=== PATIENT | female | born 1950 | race Caucasian/White ===

== ENCOUNTER 2016-09-08 07:05 | Inpatient (IN) ==
[2016-09-08] MEDS ORDERED: ONDANSETRON 4 MG/2 ML VIAL IV PRN ×2 (07:13→15:33)
[2016-09-08] MEDS ORDERED: ALUM/MAG/SIMETH/LIDO VISC 1:1 30 ML BOTTLE PO STA (07:13)
[2016-09-08] MEDS ORDERED: MORPHINE 2 MG/1 ML SYRINGE IV PRN (07:13)
[2016-09-08] MEDS ORDERED: ENOXAPARIN 100 MG/ML SYRINGE SUBCUT STA (07:13)
[2016-09-08] MEDS ORDERED: ASPIRIN 325 MG TABLET PO STA (07:13)
[2016-09-08] MEDS ORDERED: NITROGLYCERIN SL 0.4 MG TABLET SL PRN ×2 (07:13→11:30)
--- NOTE | 2016-09-08 07:27 | EKG Report ---
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
--- NOTE | 2016-09-08 07:34 | Emergency Department Note ---
Nithya Kang Hilary, am scribing for, and in the presence of, Andrea Saha MD 07: 31. Maria A Kang James D, MD, personally performed the services described in this documentation, ascribed by Nyasia Barriga in my presence, and it is both accurate and complete 733 . Arrival - Arrival Chief Complaint: Chest Pain Stated Complaint: chest pain ED Nursing Triage Note: Pt arrived via ems with c/o of cp upon awakening. Denies nausea at this time. Reports shortness of breath with chest pain. Pt reports taking 2 nitro sl. States pain is now 3 out of 10. Pt wearing holter monitor. Refused to take meds from ems. Mode of Arrival: Stretcher Limitations: No Limitations Source: Patient, RN Notes Reviewed Time Seen by Provider: 09/08/16 07:13 - History of Present Illness HPI Narrative: Pt is a 66 y/o white female brought to the ED via EMS for c/o chest pain which onset 0545 which is no resolved. She confirms SOB but denies cough, fever, diaphoresis. Pt has a PMHx of CHF, Cardiac Dysrhythmia, HTN, and has an internal defibrillator. No other complaints or problems stated in the ED. Onset (ago): hour(s) Consistency: constant, now resolved Severity: mild Severity scale (1-10): 3 Quality: sharp Allergies/Adverse Reactions: Allergies Allergy/AdvReac Type Severity Reaction Status Date / Time meperidine [From Demerol] Allergy Hallucinati Verified 09/08/16 07:26 ng morphine Allergy Hypotension Verified 09/08/16 07:26 Review of System - Review of System 12 point system: reviewed and no additional remarkable complaints except as stated - Review of System Constitutional: Absent: diaphoresis, fever Respiratory: Present: respiratory distress (SOB). Absent: cough Cardiovascular: Present: chest pain Medical,Surgical,& Family Hx - Medical History Cardio: History of: Cardiac Dysrhythmia, CHF, Hypertension - Surgical History Cardiac Surgeries: Sugical HX of: Internal Defibrillator - Social History Smoking Status: Never smoker Frequency of Alcohol Use: None Type of Drug Use: None Exam Physical Examination: GENERAL: This is a well-nourished, well-developed in no apparent distress. VITAL SIGNS: Temperature: 98.7 Pulse: 71 Respiratory: 21 Blood Pressure: 145/ 89 O2Sat: 100 HEENT: Head is normocephalic and atraumatic. Pupils are equally round and reactive to light. Extraocular movement are intact. Oropharynx is benign with moist mucous membranes. NECK: Neck is soft and supple without tenderness. There are no masses. There is no lymphadenopathy. LUNGS: Lungs are clear to auscultation bilaterally. Chest rises symmetrically. There is no chest wall tenderness. CV: Heart is regular rate and rhythm without murmurs, rubs, or gallops. ABDOMEN: Abdomen is soft, non-tender to palpation. There are no abnormal masses palpated. There is no organomegaly. Bowel sounds are present and active. SKIN: Skin is warm and dry. No rash. EXTREMITIES: Patient has full range of motion without tenderness. There is no pedal edema. NEUROLOGIC: Awake, alert, and oriented x4. Cranial nerves II through XII are grossly intact. There are no motorsensory deficits. PSYCHIATRIC: Normal affect. Normal mood. Vital Signs: Vital Signs Temperature 98.7 F 09/08/16 07:06 Pulse Rate 112 H 09/08/16 08:30 Respiratory Rate 29 H 09/08/16 08:30 Blood Pressure 126/77 09/08/16 08:30 O2 Sat by Pulse Oximetry 98 09/08/16 08:30 Course - Consultations Consultation #1: Discussed with cardiology. Patient will be admitted to their service. The patient will be seen in the emergency department. Results - Labs CBC & BMP: 09/08/16 07:44 09/08/16 07:44 Lab Results: I have reviewed the patients labs Labs: Laboratory Tests 09/08/16 09/08/16 07:44 07:55 WBC 7.9 RBC 3.91 Hgb 12.0 Hct 35.4 L Plt Count 239 POC Creatinine 0.86 POC Estimated GFR (eGFR) > 60 Laboratory Tests 09/08/16 09/08/16 09/08/16 07:44 07:44 07:44 INR 1.0 PT Patient/Control Mix 10.3 Circ Anticoag PTT 21.5 Sodium 138 Potassium 5.0 Chloride 103 Carbon Dioxide 29 BUN 21 H Creatinine 1.20 H Glucose 143 H Troponin I < 0.015 Total Protein 7.2 Laboratory Tests 09/08/16 07:44 Urine pH 6.0 Ur Specific [place] 1.013 Urine Urobilinogen < 2.0 H Urine Leukocytes Moderate H Urine RBC 2 Urine WBC 10 - EKG EKG results: interpreted by ERMD - Impressions EKG: Normal sinus rhythm with rate of 72, nonspecific ST-T wave changes, left axis deviation. - Diagnostic Findings Procedure: Chest x-ray: image reviewed by me, report reviewed by me (1. stable position cardiac pacing device 2. Previous cholecystectomy 3. Resolution of atelectatic change in the right midlung zone with no acute cardiomegaly pathology noted. AICD in position with leads in place.), CT - chest: image reviewed by me, report reviewed by me (No pulmonary thromboembolus on chest CT PA gram.) Disposition Clinical Impression: Chest pain, Hyperlipidemia, Cardiomyopathy Case discussed with: patient, patient's family Disposition: Still a Patient Condition: Stable Time of Disposition: 08:38
[2016-09-08 07:57] LABS: Basophils % 0.5 % (0.0-0.8); Eosinophils % 4.3 % (0.00-10.9); Hematocrit 35.4 VOL% (35.7-47.0); Lymphocytes % 22.9 % (21.3-54.2); Mean Corpuscular HGB Conc 33.9 GM/DL (32-36); Mean Corpuscular Hemoglobin 31 PG (27-34); Mean Corpuscular Volume 90.5 FL (87-102); Mean Platelet Volume 10.5 FL (9.6-12.0); Monocytes % 8.4 % (1.7-12.7); Platelet Count 239 T/CUMM (130-400); Red Blood Count 3.91 MC/CUMM (3.8-5.5); Red Cell Distribution Width 14.9 % (9.3-17.3); White Blood Count 7.9 T/CUMM (4-12)
[2016-09-08 07:58] LABS: Eosinophils # 0.3 10*3/uL (0.0-0.87); Immature Granulocytes % 0.9 %; Immature Granulocytes Absolute 0.07 #; Lymphocytes # 1.8 10*3/uL (1.4-4.0); Monocytes # 0.7 10*3/uL (0.11-0.8); Neutrophils # 4.9 10*3/uL (1.4-7.4)
[2016-09-08 08:07] LABS: PT Patient Result 10.3 SECS; Partial Thromboplastin Time 21.5 SECS (0-40)
[2016-09-08] MEDS ORDERED: ONDANSETRON 4 MG/2 ML VIAL ONE (08:20)
[2016-09-08] MEDS ORDERED: NITROGLYCERIN SL 0.4 MG TABLET SL ONE (08:20)
[2016-09-08] MEDS ORDERED: ENOXAPARIN 80 MG/0.8 ML SYRINGE SUBCUT ONE (08:20)
[2016-09-08] MEDS ORDERED: ASPIRIN 325 MG TABLET ONE (08:21)
[2016-09-08] MEDS ORDERED: ALUM/MAG/SIMETH/LIDO VISC 1:1 30 ML BOTTLE PO ONE (08:21)
--- NOTE | 2016-09-08 08:24 | XRay Report ---
Exam: XR chest 2V Date: 09/08/2016 7:14 AM Indication: Chest pain Comparison: None Technical: PA lateral Findings: Patient device is in place from a left-sided approach with defibrillator leads. External cardiac leads are also present. The heart is normal in size. ASVD is present. No obvious consolidating infiltrate or effusion. Prior cholecystectomy clips are present. Degenerative change present thoracic spine. Impression: 1. Stable position cardiac pacing device 2. Previous cholecystectomy 3. Resolution of atelectatic change in the right midlung zone with no acute cardiomegaly pathology noted PROCEDURE INTERPRETED AT [facility] DEPARTMENT OF RADIOLOGY Final Report Signed by: Dr. Piotr Dozier
[2016-09-08 08:27] LABS: Alanine Aminotransferase 26 U/L (13-56); Albumin 3.9 G/DL (3.4-5.0); Alkaline Phosphatase 69 U/L (45-117); Aspartate Amino Transferase 21 U/L (0-37); Bilirubin,Total < 0.39 MG/DL (0.2-1.0); Blood Urea Nitrogen 21 MG/DL (7-18); Calcium 9.1 MG/DL (8.5-10.1); Glucose 143 MG/DL (74-106); Osmolality,Calculated 279.7 MOS/KG (273-304); Sodium 138 MMOL/L (136-145); Total Protein 7.2 G/DL (6.4-8.3)
--- NOTE | 2016-09-08 08:31 | CT Report ---
Exam: CT chest PE study Date: 09/08/2016 7:29 AM Indication: Chest pain Comparison: Routine chest Technical: Images were obtained from the thoracic inlet through the lung bases with 80 cc of Omnipaque 350 with axial and coronal imaging available for review. Dose reduction was performed with decreasing kv and mA and automated exposure. 3-D MIP images were obtained Total DLP 175.7 Findings: Cardiac pacing device from a left-sided approach with atrial ventricular leads present calcified granuloma over the left chest is present. Calcified granuloma in the right lung base also present.. The pulmonary outflow tract, left and right proximal pulmonary arteries, first-order, second-order and third order branches reveal no evidence of pulmonary thromboemboli. The lungs are clear without infiltrates or effusions. The mediastinum and bony structures are intact. ASVD is present. Mild cardiomegaly. Liver and spleen stomach pancreas adrenal glands are intact. Prior cholecystectomy clips are present. Impression: 1. No evidence of pulmonary thromboemboli. 2. Stable position of patient device from a left-sided approach with atrial ventricular leads 3. Small granuloma calcification in the right and left chest measuring up to 10 mm. PROCEDURE INTERPRETED AT [facility] DEPARTMENT OF RADIOLOGY Final Report Signed by: Dr. Piotr Dozier
[2016-09-08 08:42] LABS: Apearance,Urine Slightly Hazy (Clear); Bilirubin,Urine Negative (Negative); Blood, Urine Negative (Negative); Glucose,Urine (UA) Negative (Negative); Ketones,Urine Negative (Negative); Mucus,Urine Occasional /LPF (Occasional); Nitrite,Urine Negative (Negative); Protein,Urine Negative; RBC,Urine 2 /HPF (0-4); Squamous Epithelial Cell,Urine Occasional /HPF (0-10); Urine Color Yellow (Yellow); Urine Specific Gravity 1.013 (1.001-1.035); Urine Urobilinogen < 2.0 EU/DL (0.2-1.0); WBC,Urine 10 /HPF (0-6)
[2016-09-08] MEDS ORDERED: SODIUM CHLORIDE 0.9% 1,000 ML IV SCH (09:58)
[2016-09-08] MEDS ORDERED: MAGNESIUM SULF RIDER 2 GM in PREMIX 1 EACH IV PRN (09:58)
[2016-09-08] MEDS ORDERED: MAGNESIUM SULF RIDER 4 GM in PREMIX 1 EACH IV PRN (09:58)
--- NOTE | 2016-09-08 10:22 | EKG Report ---
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
[2016-09-08 10:34] LABS: Phencyclidine Screen,Urine Negative (Negative)
[2016-09-08 10:35] LABS: Barbiturates Screen,Urine Negative (Negative); Benzodiazepines Screen,Urine Negative (Negative); Cannabinoid Screen,Urine Negative (Negative); Opiate Screen,Urine Negative (Negative)
[2016-09-08 11:15] LABS: Magnesium 2.2 MG/DL (1.8-2.4); Thyroid Stimulating Hormone 4.58 uIU/ml (0.358-3.74)
--- NOTE | 2016-09-08 11:24 | Cardiology History & Physical ---
<Megan Ramírez E - Last Filed: 09/08/16 11:03> Assessment and Plan - Time spent with patient Time spent with patient: Greater than 30 minutes (1) PAF (paroxysmal atrial fibrillation) Status: Chronic Assessment and plan: SEE PLAN OF CARE LISTED BELOW Current Visit: Yes (2) NICM (nonischemic cardiomyopathy) Status: Acute Assessment and plan: SEE PLAN OF CARE LISTED BELOW Current Visit: Yes (3) Dyslipidemia Status: Chronic Assessment and plan: SEE PLAN OF CARE LISTED BELOW Current Visit: Yes (4) Sleep apnea Status: Chronic Assessment and plan: SEE PLAN OF CARE LISTED BELOW Current Visit: Yes (5) Chronic UTI Status: Chronic Assessment and plan: SEE PLAN OF CARE LISTED BELOW Current Visit: Yes (6) High risk medication use Status: Chronic Assessment and plan: SEE PLAN OF CARE LISTED BELOW Current Visit: Yes (7) Chest pain Status: Resolved Assessment and plan: SEE PLAN OF CARE LISTED BELOW Current Visit: Yes (8) Hyperlipidemia Status: Chronic Assessment and plan: SEE PLAN OF CARE LISTED BELOW Current Visit: Yes History of Present Illness Chief complaint: Chest pain History of present illness: [employer]OR: DR. MCCLURE Ms. Owens, [id number], is routinely followed by Dr. Mcclure. She was last seen in cardiology clinic June 19, 2016. Risk factors include: Hypertension, dyslipidemia, TIA. History of nonischemic cardiomyopathy requiring ICD approximately 10 years ago (EF now 55% per echo September 08, 2015). History of untreated sleep apnea. She was recently diagnosed with atrial fibrillation when discovered to have a TIA. [place] at that time, started on Eliquis. Stress test September 11, 2015 revealed no reversible ischemia, low risk. This morning, around 0545, patient was lying in bed when she began to experience left upper chest pain radiating through to her left scapula, described as sharp and stabbing. It was worse when taking a deep breath, lasted approximately 10 minutes and resolved on its own. There was no shortness of breath, nausea, vomiting or diaphoresis. She can identify no alleviating factors. Rates the discomfort as a 7 on a scale of 1-10, currently chest pain-free. She has never had this type of discomfort before and feels as if she should be evaluated in the emergency department. Cardiac biomarkers negative, EKG reveals atrial fibrillation, chest x-ray reveals no significant abnormality. CT chest reveals no significant abnormality, no PTE. Normally, she is very active, walking 1-2 miles daily and can perform these activities without chest pain, heaviness, tightness or shortness of breath. Patient has been expressing palpitations for many months. Spring 2016, she wore a holter monitor without significant arrhythmia noted. She is currently wearing an event monitor for these palpitations. Initial EKG on arrival today reveals atrial fibrillation. She reports it has been difficult to diagnose as she feels as if she is in an irregular rhythm frequently but the irregularity is not easily captured. In the emergency room ([id number]) recently, she was diagnosed with a TIA for symptoms including weakness, dysarthria. She was started on Eliquis at that time for atrial fibrillation. I do not have these records. She has had no additional TIAs. Reports she had echo, CT head and carotid ultrasound during the ER visit and received favorable results from all of these studies. Patient also has untreated sleep apnea. Proximally 1-1/2 years ago, she underwent sleep study and was diagnosed with sleep apnea. This was during the time Dr. Enamorado was transitioning to [facility] and she did not get/return for follow-up appointment. During this hospital stay, I will ask Dr. Bishop to see, evaluate and treat accordingly. Reviewing the patient's current medications it appears that her Coreg was decreased during the ER visit from 12.5 mg twice daily to 6.25 mg twice daily. Blood pressure and heart rate may allow for increase and I will increase her beta-pratibha at this time. Adding magnesium level, TSH/T4 to her labs today. Patient had recent echocardiogram [id number], therefore no need to repeat but we will obtain these records. I will further discuss with Dr. Abernathy and await additional recommendations. It has been 1 year since patient has had stress test. She may benefit from outpatient stress testing. Continue Eliquis for stroke prevention as she as LISSETTE VASC SCORE of 6. ASSESSMENT/PLAN: 1. CHEST PAIN - atypical chest pain. Suspect it may be musculoskeletal. It is not reproducible to palpation and she has been ruled out for pulmonary contributions by chest x-ray and CT chest. It has resolved. Cardiac biomarkers are negative. May benefit from outpatient stress test. 2. PAROXYSMAL ATRIAL FIBRILLATION - increase Coreg for better rate control. This may require that I decrease her dose of Valsartan and I will do such accordingly. 3. HYPERTENSION - usually well controlled. Will adjust medications accordingly during hospital stay. 4. DYSLIPIDEMIA - recent lipid profile therefore no need to repeat. Continue Pravastatin. 5. RECENT TIA - suspect related to atrial fibrillation, now taking Eliquis for stroke prevention 6. UNTREATED SLEEP APNEA - consult Dr. Bishop 7. CHRONIC UTI - multiple allergies but can take Macrodantin and I will start today. Home Medications Medication Instructions Recorded Confirmed Type Allopurinol 100 mg PO BID 09/08/16 09/08/16 History Amitriptyline [Elavil] 25 mg PO BEDTIME 09/08/16 09/08/16 History Apixaban [Eliquis] 5 mg PO BID 09/08/16 09/08/16 History Aspirin EC Tab 81 mg PO DAILY 09/08/16 09/08/16 History Calcium Carbonate/Vitamin D3 1 each PO DAILY 09/08/16 09/08/16 History [Calcium 600 + Vit D Tablet] Carvedilol [Coreg] 6.25 mg PO BID 09/08/16 09/08/16 History Ergocalciferol (Vitamin D2) 50,000 unit PO Q7DAY 09/08/16 09/08/16 History [Vitamin D2] Folic Acid Tab 1 mg PO DAILY 09/08/16 09/08/16 History Furosemide Tab [Lasix Tab] 40 mg PO BID 09/08/16 09/08/16 History Loperamide HCl [Loperamide] 2 mg PO Q4H PRN 09/08/16 09/08/16 History Loratadine Tab [Claritin Tab] 10 mg PO DAILY 09/08/16 09/08/16 History Magnesium Oxide 250 mg PO DAILY 09/08/16 09/08/16 History Nitroglycerin Sl Tab [Nitrostat] 0.4 mg SL Q5M PRN 09/08/16 09/08/16 History Blackwell-3 Fatty Acids/Fish Oil [Fish 3 each PO DAILY 09/08/16 09/08/16 History Oil 1,000 mg Softgel] Omeprazole [Prilosec] 20 mg PO DAILY 09/08/16 09/08/16 History Potassium Chloride [Klor-Con 8] 8 meq PO DAILY 09/08/16 09/08/16 History Pravastatin Sodium 20 mg PO BEDTIME 09/08/16 09/08/16 History Pregabalin [Lyrica] 75 mg PO BID 09/08/16 09/08/16 History Valsartan [Diovan] 320 mg PO DAILY 09/08/16 09/08/16 History Allergies Allergy/AdvReac Type Severity Reaction Status Date / Time meperidine [From Demerol] Allergy Hallucinati Verified 09/08/16 07:26 ng morphine Allergy Hypotension Verified 09/08/16 07:26 Review of systems: REVIEW OF SYSTEMS: See HPI - Constitutional Constitutional: Absent: syncope, anorexia, night sweats - EENT Eyes: Absent: blurry vision, loss of vision, diplopia Ears: Absent: decreased hearing, ear pain, ear discharge - Cardiovascular Cardiovascular: Denies chest pain with exertion, dyspnea on exertion, edema. Frequent palpitations. Experienced chest pain with deep breath this morning. Denies claudication. - Respiratory Respiratory: Denies GUTIERREZ, cough. Absent: wheezing, hemoptysis, change in phlegm color - Gastrointestinal Gastrointestinal: Present: Chronic diarrhea since gallbladder has been removed. Absent: abdominal pain, hematemesis, hematochezia, melena, change in bowel habits, nausea - Genitourinary Genitourinary: Occasional dysuria though none present today. Absent: difficulty urinating, urinary hesitancy, flank pain - Musculoskeletal Musculoskeletal: Present: back pain Absent: joint swelling, muscle cramps, muscle weakness - Neurological Neurological: Present: normal gait without frequent falls. Absent: dizziness, hemiparesis - Psychiatric Psychiatric: Absent: anxiety, depression, difficulty concentrating - Endocrine Endocrine: Denies fatigue. Absent: cold intolerance, heat intolerance, polyuria , polyphagia, polydipsia - Hematologic/Lymphatic Hematologic/Lymphatic: Present: easy bruising. Absent: easy bleeding -Integumentary Integumentary: Absent: lesions, rashes, skin breakdown Medical,Surgical,& Family Hx - Medical History Cardio: History of: Cardiac Dysrhythmia, CHF, Hypertension, Pacemaker No history of: CAD, NE Neurology: History of: TIA (08/27/16) Rheumatology: History of;: Gout Genitourinary: History of: Bladder Problem, Kidney Stones, Recurring Urinary Tract Infections Gastrointestinal: History of: GERD Musculoskeletal: History of: Back/Neck Problems, Musculoskeletal Problems - Surgical History Cardiac Surgeries: Sugical HX of: Cardiac Catheterization, Internal Defibrillator Abdominal Surgeries: Surgical HX of: Appendectomy, Cholecystectomy Reproductive Surgeries: Surgical HX of;: Hysterectomy, Tubal Ligation Orthopedic Surgeries: Surgical HX of;: Orthopedic Surgery (right knee repair) - Family History Family History: Reports;: Family Cancer, Family Heart Disease, Family Hypertension, Family Stroke - Social History Smoking Status: Never smoker Have you smoked in the last 12 months: No Frequency of Alcohol Use: None Type of Drug Use: None Marital Status: Lives With:: Spouse Functional capacity: independent ambulation Cardiology Physical Exam - Constitutional Vitals: Vital Signs Temp Pulse Resp BP Pulse Ox 98.3 F 79 20 133/69 99 09/08/16 10:07 09/08/16 10:07 09/08/16 10:07 09/08/16 10:07 09/08/16 10:07 Intake and Output 09/07/16 09/08/16 09/08/16 23:59 07:59 15:59 Other: Weight 72.575 kg Patient Weight 09/08/16 23:59 Weight 72.575 kg Exam: General: [Appears well with no apparent distress.] [Pleasant and cooperative. ] [Appears comfortable.] HEENT: [PERRL, normocephalic, atraumatic. Mucous membranes moist. No jaundice noted. Conjunctiva moist and clear, sclerae anicteric] Neck: No JVD/HJR, no thyromegaly or lymphadenopathy noted. No carotid bruit appreciated Cardiac: [Regular rate and rhythm.] [No obvious murmur rub or gallop.] Lungs: [Clear to auscultation without accessory muscle use to assist the respiratory pattern.] Not requiring oxygen Abdomen: Soft, bowel sounds normoactive. Nontender and nondistended. No abdominal bruit or thrill noted. No masses noted. Musculoskeletal: No fluid collection. Decreased range of motion is noted. Extremities: No clubbing, cyanosis noted. [ No edema noted.] Upper extremity pulses 2+. Lower extremity pulses 2+. Capillary refill less than 3 seconds. Skin: No unusual lesions or rashes. No skin breakdown appreciated. Neuro: Awake, alert and oriented 3. Moves all extremities well without hemiparesis or paralysis. No essential tremor is appreciated. Result/EKG - Labs CBC & BMP: 09/08/16 07:44 09/08/16 07:44 Lab Results: I have reviewed the past 24 hour labs Labs: Laboratory Results - last 24 hr 09/08/16 09/08/16 09/08/16 07:44 07:44 07:44 WBC RBC Hgb Hct MCV MCH MCHC RDW Plt Count MPV Neut % (Auto) Lymph % (Auto) Hemphill % (Auto) Eos % (Auto) Baso % (Auto) Neut # (Auto) Lymph # (Auto) Hemphill # (Auto) Eos # (Auto) Baso # (Auto) Immature Gran % Nucleated RBC % Immature Gran # Nucleated RBCs # INR 1.0 PT Patient/Control Mix 10.3 Circ Anticoag PTT 21.5 Sodium 138 Potassium 5.0 Chloride 103 Carbon Dioxide 29 Anion Gap 11.0 BUN 21 H Creatinine 1.20 H POC Creatinine GFR Calculation 48 POC Estimated GFR (eGFR) BUN/Creatinine Ratio 17.00 Glucose 143 H Calculated Osmolality 279.7 Calcium 9.1 Total Bilirubin < 0.39 AST 21 ALT 26 Alkaline Phosphatase 69 Troponin I Total Protein 7.2 Albumin 3.9 Globulin 3.3 Albumin/Globulin Ratio 1.1 Urine Color Yellow Urine Appearance Slightly hazy Urine pH 6.0 Ur Specific Williams 1.013 Urine Protein Negative Urine Glucose (UA) Negative Urine Ketones Negative Urine Blood Negative Urine Nitrate Negative Urine Bilirubin Negative Urine Urobilinogen < 2.0 H Urine Leukocytes Moderate H Urine RBC 2 Urine WBC 10 Ur Squamous Epith Cells Occasional Urine Mucus Occasional Ur Culture Indicated? Results to follow Urine Opiates Screen Ur Barbiturates Screen Ur Phencyclidine Scrn U Amphetamine/Methamph U Benzodiazepines Scrn U Cocaine Metab Screen U Cannabinoids Screen 09/08/16 09/08/16 09/08/16 07:44 07:44 07:44 WBC 7.9 RBC 3.91 Hgb 12.0 Hct 35.4 L MCV 90.5 MCH 31 MCHC 33.9 RDW 14.9 Plt Count 239 MPV 10.5 Neut % (Auto) 63.0 Lymph % (Auto) 22.9 Hemphill % (Auto) 8.4 Eos % (Auto) 4.3 Baso % (Auto) 0.5 Neut # (Auto) 4.9 Lymph # (Auto) 1.8 Hemphill # (Auto) 0.7 Eos # (Auto) 0.3 Baso # (Auto) 0.0 Immature Gran % 0.9 Nucleated RBC % 0.0 Immature Gran # 0.07 Nucleated RBCs # 0.00 INR PT Patient/Control Mix Circ Anticoag PTT Sodium Potassium Chloride Carbon Dioxide Anion Gap BUN Creatinine POC Creatinine GFR Calculation POC Estimated GFR (eGFR) BUN/Creatinine Ratio Glucose Calculated Osmolality Calcium Total Bilirubin AST ALT Alkaline Phosphatase Troponin I < 0.015 Total Protein Albumin Globulin Albumin/Globulin Ratio Urine Color Urine Appearance Urine pH Ur Specific Williams Urine Protein Urine Glucose (UA) Urine Ketones Urine Blood Urine Nitrate Urine Bilirubin Urine Urobilinogen Urine Leukocytes Urine RBC Urine WBC Ur Squamous Epith Cells Urine Mucus Ur Culture Indicated? Urine Opiates Screen Negative Ur Barbiturates Screen Negative Ur Phencyclidine Scrn Negative U Amphetamine/Methamph Negative U Benzodiazepines Scrn Negative U Cocaine Metab Screen Negative U Cannabinoids Screen Negative 09/08/16 07:55 WBC RBC Hgb Hct MCV MCH MCHC RDW Plt Count MPV Neut % (Auto) Lymph % (Auto) Hemphill % (Auto) Eos % (Auto) Baso % (Auto) Neut # (Auto) Lymph # (Auto) Hemphill # (Auto) Eos # (Auto) Baso # (Auto) Immature Gran % Nucleated RBC % Immature Gran # Nucleated RBCs # INR PT Patient/Control Mix Circ Anticoag PTT Sodium Potassium Chloride Carbon Dioxide Anion Gap BUN Creatinine POC Creatinine 0.86 GFR Calculation POC Estimated GFR (eGFR) > 60 BUN/Creatinine Ratio Glucose Calculated Osmolality Calcium Total Bilirubin AST ALT Alkaline Phosphatase Troponin I Total Protein Albumin Globulin Albumin/Globulin Ratio Urine Color Urine Appearance Urine pH Ur Specific Williams Urine Protein Urine Glucose (UA) Urine Ketones Urine Blood Urine Nitrate Urine Bilirubin Urine Urobilinogen Urine Leukocytes Urine RBC Urine WBC Ur Squamous Epith Cells Urine Mucus Ur Culture Indicated? Urine Opiates Screen Ur Barbiturates Screen Ur Phencyclidine Scrn U Amphetamine/Methamph U Benzodiazepines Scrn U Cocaine Metab Screen U Cannabinoids Screen - Diagnostic Findings Procedure: Chest x-ray: report reviewed by me, CT - chest: report reviewed by me - EKG EKG results: interpreted by me EKG shows: sinus rhythm, atrial fibrillation <Timmy Abernathy - Last Filed: 09/08/16 15:02> History of Present Illness History of present illness: Cardiology addendum Patient examined and chart reviewed and discussed with nurse Megan RAMÍREZ. Nonischemic cardiomyopathy. Normal nuclear stress test September 11, 2015 no scar or ischemia. Recent echo showed improved ejection fraction now 55%. Patient does have untreated sleep apnea and will be seen by Dr. Bishop this admission. She has been having paroxysmal atrial fibrillation. Plan IV amiodarone loading Dr. Gray to see for QASIM Monitor Continue Eliquis Cardiology Physical Exam - Constitutional Vitals: Vital Signs Temp Pulse Resp BP Pulse Ox 97.4 F L 72 20 135/62 95 09/08/16 11:45 09/08/16 11:45 09/08/16 11:45 09/08/16 11:45 09/08/16 11:45 Intake and Output 09/07/16 09/08/16 09/08/16 23:59 07:59 15:59 Intake Total 360 / 360 Output Total Balance 359 / 359 Intake: Oral 360 / 360 Output: Urine Other: Voiding Method Toilet Weight 72.575 kg Patient Weight 09/08/16 23:59 Weight 72.575 kg Result/EKG - Labs CBC & BMP: 09/08/16 07:44 09/08/16 07:44 Labs: Laboratory Results - last 24 hr 09/08/16 09/08/16 09/08/16 07:44 07:44 07:44 WBC RBC Hgb Hct MCV MCH MCHC RDW Plt Count MPV Neut % (Auto) Lymph % (Auto) Hemphill % (Auto) Eos % (Auto) Baso % (Auto) Neut # (Auto) Lymph # (Auto) Hemphill # (Auto) Eos # (Auto) Baso # (Auto) Immature Gran % Nucleated RBC % Immature Gran # Nucleated RBCs # INR 1.0 PT Patient/Control Mix 10.3 Circ Anticoag PTT 21.5 Sodium 138 Potassium 5.0 Chloride 103 Carbon Dioxide 29 Anion Gap 11.0 BUN 21 H Creatinine 1.20 H POC Creatinine GFR Calculation 48 POC Estimated GFR (eGFR) BUN/Creatinine Ratio 17.00 Glucose 143 H Calculated Osmolality 279.7 Calcium 9.1 Magnesium Total Bilirubin < 0.39 AST 21 ALT 26 Alkaline Phosphatase 69 Troponin I Total Protein 7.2 Albumin 3.9 Globulin 3.3 Albumin/Globulin Ratio 1.1 Free T4 TSH 3rd Generation Urine Color Yellow Urine Appearance Slightly hazy Urine pH 6.0 Ur Specific Williams 1.013 Urine Protein Negative Urine Glucose (UA) Negative Urine Ketones Negative Urine Blood Negative Urine Nitrate Negative Urine Bilirubin Negative Urine Urobilinogen < 2.0 H Urine Leukocytes Moderate H Urine RBC 2 Urine WBC 10 Ur Squamous Epith Cells Occasional Urine Mucus Occasional Ur Culture Indicated? Results to follow Urine Opiates Screen Ur Barbiturates Screen Ur Phencyclidine Scrn U Amphetamine/Methamph U Benzodiazepines Scrn U Cocaine Metab Screen U Cannabinoids Screen 09/08/16 09/08/16 09/08/16 07:44 07:44 07:44 WBC 7.9 RBC 3.91 Hgb 12.0 Hct 35.4 L MCV 90.5 MCH 31 MCHC 33.9 RDW 14.9 Plt Count 239 MPV 10.5 Neut % (Auto) 63.0 Lymph % (Auto) 22.9 Hemphill % (Auto) 8.4 Eos % (Auto) 4.3 Baso % (Auto) 0.5 Neut # (Auto) 4.9 Lymph # (Auto) 1.8 Hemphill # (Auto) 0.7 Eos # (Auto) 0.3 Baso # (Auto) 0.0 Immature Gran % 0.9 Nucleated RBC % 0.0 Immature Gran # 0.07 Nucleated RBCs # 0.00 INR PT Patient/Control Mix Circ Anticoag PTT Sodium Potassium Chloride Carbon Dioxide Anion Gap BUN Creatinine POC Creatinine GFR Calculation POC Estimated GFR (eGFR) BUN/Creatinine Ratio Glucose Calculated Osmolality Calcium Magnesium Total Bilirubin AST ALT Alkaline Phosphatase Troponin I < 0.015 Total Protein Albumin Globulin Albumin/Globulin Ratio Free T4 TSH 3rd Generation Urine Color Urine Appearance Urine pH Ur Specific Williams Urine Protein Urine Glucose (UA) Urine Ketones Urine Blood Urine Nitrate Urine Bilirubin Urine Urobilinogen Urine Leukocytes Urine RBC Urine WBC Ur Squamous Epith Cells Urine Mucus Ur Culture Indicated? Urine Opiates Screen Negative Ur Barbiturates Screen Negative Ur Phencyclidine Scrn Negative U Amphetamine/Methamph Negative U Benzodiazepines Scrn Negative U Cocaine Metab Screen Negative U Cannabinoids Screen Negative 09/08/16 09/08/16 09/08/16 07:55 10:30 10:30 WBC RBC Hgb Hct MCV MCH MCHC RDW Plt Count MPV Neut % (Auto) Lymph % (Auto) Hemphill % (Auto) Eos % (Auto) Baso % (Auto) Neut # (Auto) Lymph # (Auto) Hemphill # (Auto) Eos # (Auto) Baso # (Auto) Immature Gran % Nucleated RBC % Immature Gran # Nucleated RBCs # INR PT Patient/Control Mix Circ Anticoag PTT Sodium Potassium Chloride Carbon Dioxide Anion Gap BUN Creatinine POC Creatinine 0.86 GFR Calculation POC Estimated GFR (eGFR) > 60 BUN/Creatinine Ratio Glucose Calculated Osmolality Calcium Magnesium 2.2 Total Bilirubin AST ALT Alkaline Phosphatase Troponin I < 0.015 Total Protein Albumin Globulin Albumin/Globulin Ratio Free T4 1.00 TSH 3rd Generation 4.580 H Urine Color Urine Appearance Urine pH Ur Specific Williams Urine Protein Urine Glucose (UA) Urine Ketones Urine Blood Urine Nitrate Urine Bilirubin Urine Urobilinogen Urine Leukocytes Urine RBC Urine WBC Ur Squamous Epith Cells Urine Mucus Ur Culture Indicated? Urine Opiates Screen Ur Barbiturates Screen Ur Phencyclidine Scrn U Amphetamine/Methamph U Benzodiazepines Scrn U Cocaine Metab Screen U Cannabinoids Screen 09/08/16 12:51 WBC RBC Hgb Hct MCV MCH MCHC RDW Plt Count MPV Neut % (Auto) Lymph % (Auto) Hemphill % (Auto) Eos % (Auto) Baso % (Auto) Neut # (Auto) Lymph # (Auto) Hemphill # (Auto) Eos # (Auto) Baso # (Auto) Immature Gran % Nucleated RBC % Immature Gran # Nucleated RBCs # INR PT Patient/Control Mix Circ Anticoag PTT Sodium Potassium Chloride Carbon Dioxide Anion Gap BUN Creatinine POC Creatinine GFR Calculation POC Estimated GFR (eGFR) BUN/Creatinine Ratio Glucose Calculated Osmolality Calcium Magnesium Total Bilirubin AST ALT Alkaline Phosphatase Troponin I < 0.015 Total Protein Albumin Globulin Albumin/Globulin Ratio Free T4 TSH 3rd Generation Urine Color Urine Appearance Urine pH Ur Specific Williams Urine Protein Urine Glucose (UA) Urine Ketones Urine Blood Urine Nitrate Urine Bilirubin Urine Urobilinogen Urine Leukocytes Urine RBC Urine WBC Ur Squamous Epith Cells Urine Mucus Ur Culture Indicated? Urine Opiates Screen Ur Barbiturates Screen Ur Phencyclidine Scrn U Amphetamine/Methamph U Benzodiazepines Scrn U Cocaine Metab Screen U Cannabinoids Screen
[2016-09-08] MEDS ORDERED: LOPERAMIDE 2 MG CAPSULE PO PRN (11:30)
--- NOTE | 2016-09-08 12:00 | Sleep Medicine Consult ---
Assessment and Plan (1) Sleep apnea Status: Chronic Assessment and plan: This patient does have obstructive sleep apnea by previous sleep study. Her sleep apnea was significant at that time. We will go ahead and prescribe CPAP for her and place her on auto titration tonight if hospitalized. We will follow -up on results and set her up for CPAP therapy after discharge with follow-up in the sleep clinic. Current Visit: Yes (2) PAF (paroxysmal atrial fibrillation) Status: Chronic Assessment and plan: Untreated sleep apnea can be an exacerbating factor to atrial fibrillation the prevalence for obstructive sleep apnea in patients with A. fib can be as high as 80%. Treating the underlying sleep apnea can reduce recurrence by almost 50% . Current Visit: Yes History of Present Illness Chief complaint: Obstructive sleep apnea History of present illness: Ms. Owens is a 66 year old female diagnosed with obstructive sleep apnea on with mild obstructive sleep apnea with a moderate REM component. She had an AHI of 6.7 and had O2 desaturation to lows of 83%. She had a REM related AHI of 23.1. She underwent CPAP titration and was prescribed 5 cm of CPAP but never got it, stating that there was a glitch with the prescription written. She was lost to follow-up. She has been admitted on this occasion with chest pain and was found to be in atrial fibrillation. Sleep medicine was consulted. The patient does continue to have significant issues with her sleep. Her sleep is unrefreshing. She has difficulty initiating and maintaining sleep. She often will retire about 10 PM and will get out of bed about 7 in the morning. She awakens several times at night. She does snore but is never been told that she stops breathing in her sleep other than from her sleep study. She not aware of any significant issues with restlessness of her legs or leg jerks. She does have some nocturia. She does drink caffeinated beverages during the day, up to 4 glasses of caffeinated tea with the last being about 6 PM. She denies schedule naps but does occasionally doze off during the day. Home Medications Medication Instructions Recorded Confirmed Type Allopurinol 100 mg PO BID 09/08/16 09/08/16 History Amitriptyline [Elavil] 25 mg PO BEDTIME 09/08/16 09/08/16 History Apixaban [Eliquis] 5 mg PO BID 09/08/16 09/08/16 History Aspirin EC Tab 81 mg PO DAILY 09/08/16 09/08/16 History Calcium Carbonate/Vitamin D3 1 each PO DAILY 09/08/16 09/08/16 History [Calcium 600 + Vit D Tablet] Carvedilol [Coreg] 6.25 mg PO BID 09/08/16 09/08/16 History Ergocalciferol (Vitamin D2) 50,000 unit PO Q7DAY 09/08/16 09/08/16 History [Vitamin D2] Folic Acid Tab 1 mg PO DAILY 09/08/16 09/08/16 History Furosemide Tab [Lasix Tab] 40 mg PO BID 09/08/16 09/08/16 History Loperamide HCl [Loperamide] 2 mg PO Q4H PRN 09/08/16 09/08/16 History Loratadine Tab [Claritin Tab] 10 mg PO DAILY 09/08/16 09/08/16 History Magnesium Oxide 250 mg PO DAILY 09/08/16 09/08/16 History Nitroglycerin Sl Tab [Nitrostat] 0.4 mg SL Q5M PRN 09/08/16 09/08/16 History Ponce-3 Fatty Acids/Fish Oil [Fish 3 each PO DAILY 09/08/16 09/08/16 History Oil 1,000 mg Softgel] Omeprazole [Prilosec] 20 mg PO DAILY 09/08/16 09/08/16 History Potassium Chloride [Klor-Con 8] 8 meq PO DAILY 09/08/16 09/08/16 History Pravastatin Sodium 20 mg PO BEDTIME 09/08/16 09/08/16 History Pregabalin [Lyrica] 75 mg PO BID 09/08/16 09/08/16 History Valsartan [Diovan] 320 mg PO DAILY 09/08/16 09/08/16 History Allergies Allergy/AdvReac Type Severity Reaction Status Date / Time meperidine [From Demerol] Allergy Hallucinati Verified 09/08/16 07:26 ng morphine Allergy Hypotension Verified 09/08/16 07:26 Review of systems: Otherwise unremarkable from sleep standpoint. Exam (Pulmonay) H&P - Constitutional Vitals: Period Temp Pulse Resp BP Sys/Jauregui Pulse Ox Last 24 Hr 97.4 F-98.7 F 69-112 15-30 117-155/62-98 95-100 Exam: She is alert and responsive in no acute distress. Pupils equal round reactive to light and accommodation. Extraocular movements intact. Oropharynx with a class III Mallampati exam. Neck is supple without adenopathy or thyromegaly. No supraclavicular adenopathy is noted. Chest with symmetrical breath sounds without focal wheeze, rhonchi, or rales. Cardiac exam reveals a regular rhythm without murmur or gallop. Abdomen soft nontender without palpable hepatosplenomegaly or mass. Extremities are without clubbing, cyanosis, or edema. Neurologically, she is grossly intact. She moves all extremities with good strength. Medical,Surgical,& Family Hx - Medical History Cardio: History of: Cardiac Dysrhythmia, CHF, Hypertension, Pacemaker No history of: CAD, [place] Neurology: History of: TIA (08/27/16) Rheumatology: History of;: Gout Genitourinary: History of: Bladder Problem, Kidney Stones, Recurring Urinary Tract Infections Gastrointestinal: History of: GERD Musculoskeletal: History of: Back/Neck Problems, Musculoskeletal Problems - Surgical History Cardiac Surgeries: Sugical HX of: Cardiac Catheterization, Internal Defibrillator Abdominal Surgeries: Surgical HX of: Appendectomy, Cholecystectomy Reproductive Surgeries: Surgical HX of;: Hysterectomy, Tubal Ligation Orthopedic Surgeries: Surgical HX of;: Orthopedic Surgery (right knee repair) - Family History Family History: Reports;: Family Cancer, Family Heart Disease, Family Hypertension, Family Stroke - Social History Smoking Status: Never smoker Frequency of Alcohol Use: None Type of Drug Use: None Marital Status: Lives With:: Spouse Results - Labs CBC & BMP: 09/08/16 07:44 09/08/16 07:44 Lab Results: I have reviewed the past 24 hour labs Labs: TSH suggests that she has mild hypothyroidism.
[2016-09-08] MEDS: NITROFURANTOIN MACRO/MONO 100 MG CAPSULE PO SCH ×2 (13:07→20:33)
--- NOTE | 2016-09-08 13:17 | EKG Report ---
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
[2016-09-08] MEDS ORDERED: AMIODARONE INJ 150 MG in DEXTROSE 5% 100 ML IV ONE (14:52)
[2016-09-08] MEDS ORDERED: AMIODARONE INJ 450 MG in DEXTROSE 5% 241 ML IV SCH (16:00)
[2016-09-08] MEDS: CARVEDILOL 6.25 MG TABLET PO SCH (16:58)
[2016-09-08] MEDS: PRAVASTATIN 20 MG TABLET PO SCH (20:33)
[2016-09-08] MEDS: PREGABALIN 75 MG CAPSULE PO SCH (20:33)
[2016-09-08] MEDS: ALLOPURINOL 100 MG TABLET PO SCH (20:33)
[2016-09-08] MEDS: FUROSEMIDE 40 MG TABLET PO SCH (20:33)
[2016-09-08] MEDS: AMITRIPTYLINE 25 MG TABLET PO SCH (20:33)
[2016-09-08] MEDS: APIXABAN 5 MG TABLET PO SCH (20:33)
[2016-09-08] MEDS ORDERED: CARVEDILOL 12.5 MG TABLET PO SCH (21:00)
[2016-09-08] MEDS: AMIODARONE INJ 450 MG in DEXTROSE 5% 241 ML IV SCH (21:57)
[2016-09-09] MEDS: AMIODARONE INJ 450 MG in DEXTROSE 5% 241 ML IV SCH ×2 (02:27→14:57)
[2016-09-09 04:03] LABS: Basophils % 0.6 % (0.0-0.8); Eosinophils # 0.3 10*3/uL (0.0-0.87); Eosinophils % 4.4 % (0.00-10.9); Hematocrit 33.6 VOL% (35.7-47.0); Hemoglobin 11.3 GM/DL (12.0-16.0); Immature Granulocytes % 0.6 %; Immature Granulocytes Absolute 0.04 #; Lymphocytes # 2.1 10*3/uL (1.4-4.0); Lymphocytes % 29.2 % (21.3-54.2); Mean Corpuscular HGB Conc 33.6 GM/DL (32-36); Mean Corpuscular Hemoglobin 31 PG (27-34); Mean Corpuscular Volume 90.6 FL (87-102); Mean Platelet Volume 10.8 FL (9.6-12.0); Monocytes # 0.7 10*3/uL (0.11-0.8); Monocytes % 9.6 % (1.7-12.7); Neutrophils % 55.6 % (38.7-73.9); Platelet Count 225 T/CUMM (130-400); Red Blood Count 3.71 MC/CUMM (3.8-5.5); Red Cell Distribution Width 14.9 % (9.3-17.3); White Blood Count 7.2 T/CUMM (4-12)
[2016-09-09 04:30] LABS: Calcium 8.5 MG/DL (8.5-10.1); Magnesium 2.2 MG/DL (1.8-2.4); Osmolality,Calculated 281.5 MOS/KG (273-304); Potassium 4.1 MMOL/L (3.5-5.1)
--- NOTE | 2016-09-09 07:02 | EKG Report ---
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
[2016-09-09] MEDS: NITROFURANTOIN MACRO/MONO 100 MG CAPSULE PO SCH ×2 (08:30→21:45)
[2016-09-09] MEDS: OMEGA 3 ACID ETHYL ESTERS 1 GM CAPSULE PO SCH (08:30)
[2016-09-09] MEDS: ALLOPURINOL 100 MG TABLET PO SCH ×2 (08:30→21:45)
[2016-09-09] MEDS: POTASSIUM CHLORIDE 8 MEQ CAPSULE PO SCH (08:31)
[2016-09-09] MEDS: CARVEDILOL 6.25 MG TABLET PO SCH ×2 (08:31→17:53)
[2016-09-09] MEDS: LORATADINE 10 MG TABLET PO SCH (08:31)
[2016-09-09] MEDS: PANTOPRAZOLE 40 MG TABLET PO SCH (08:31)
[2016-09-09] MEDS: VALSARTAN 160 MG TABLET PO SCH (08:31)
[2016-09-09] MEDS: FUROSEMIDE 40 MG TABLET PO SCH ×2 (08:31→21:45)
[2016-09-09] MEDS: FOLIC ACID 1 MG TABLET PO SCH (08:32)
[2016-09-09] MEDS: ASPIRIN EC 81 MG TABLET PO SCH (08:32)
[2016-09-09] MEDS: CALCIUM (CARBONATE)/VITAMIN D 600 MG-400 UNIT TABLET PO SCH (08:32)
[2016-09-09] MEDS: PREGABALIN 75 MG CAPSULE PO SCH ×2 (08:32→21:44)
[2016-09-09] MEDS: APIXABAN 5 MG TABLET PO SCH ×2 (08:32→21:45)
[2016-09-09] MEDS: MAGNESIUM OXIDE 400 MG TABLET PO SCH (08:32)
[2016-09-09] MEDS ORDERED: ENOXAPARIN 40 MG/0.4 ML SYRINGE SUBCUT SCH (09:00)
--- NOTE | 2016-09-09 10:29 | Cardiology Progress Note ---
<Megan Ramírez E - Last Filed: 09/09/16 10:32> Assessment and Plan - Time spent with patient Time spent with patient: Greater than 30 minutes (1) PAF (paroxysmal atrial fibrillation) Status: Chronic Assessment and plan: SEE PLAN OF CARE LISTED BELOW Current Visit: Yes (2) NICM (nonischemic cardiomyopathy) Status: Resolved Assessment and plan: SEE PLAN OF CARE LISTED BELOW Current Visit: Yes (3) Dyslipidemia Status: Chronic Assessment and plan: SEE PLAN OF CARE LISTED BELOW Current Visit: Yes (4) Sleep apnea Status: Chronic Assessment and plan: SEE PLAN OF CARE LISTED BELOW Current Visit: Yes (5) Chronic UTI Status: Chronic Assessment and plan: SEE PLAN OF CARE LISTED BELOW Current Visit: Yes (6) High risk medication use Status: Chronic Assessment and plan: SEE PLAN OF CARE LISTED BELOW Current Visit: Yes (7) Chest pain Status: Resolved Assessment and plan: SEE PLAN OF CARE LISTED BELOW Current Visit: Yes Qualifiers: Chest pain type: unspecified Qualified Code(s): R07.9 - Chest pain, unspecified (8) Hyperlipidemia Status: Chronic Assessment and plan: SEE PLAN OF CARE LISTED BELOW Current Visit: Yes Cardiology - PN: Subj Interval history: 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 Owens, 66WF, with history of hypertension, dyslipidemia, TIA. History of nonischemic cardiomyopathy requiring ICD approximately 10 years ago (EF now 45% per echo August 2016). History of untreated sleep apnea. She was recently diagnosed with atrial fibrillation when discovered to have a TIA. She was at [facility] in [place], [place] when this occurred and was started on Eliquis. Stress test September 11, 2015 revealed no reversible ischemia, low risk. Patient was admitted September 08, 2016 for one brief episode of atypical chest pain at rest. Cardiac biomarkers were negative. She was discovered to be in atrial fibrillation with rapid ventricular response with paroxysms of normal sinus rhythm. She was started on IV Amiodarone last evening. SEPTEMBER 09, 2016: Patient has remained in normal sinus rhythm overnight after the initiation of IV Amiodarone. Her palpitations have improved. Dr. Bishop saw patient and patient worse sleep device last evening and tolerated without problems. This morning, she reports she has had no additional chest pain, heaviness or tightness. She is usually very active and hopes to be discharged home possibly this evening. I will initiate oral Amiodarone this afternoon as the protocol will be is completed this afternoon. I will further discuss with Dr. Abernathy and await additional recommendations. Hopefully, patient may be eligible for discharge this afternoon. ASSESSMENT/PLAN: 1. CHEST PAIN - atypical chest pain. Suspect it may be musculoskeletal. It is not reproducible to palpation and she has been ruled out for pulmonary contributions by chest x-ray and CT chest. Chest pain has resolved and may have been related to her atrial fibrillation with rapid ventricular response and/ or musculoskeletal in nature. Cardiac biomarkers are negative. May benefit from outpatient stress test. 2. PAROXYSMAL ATRIAL FIBRILLATION - now in normal sinus rhythm after IV Amiodarone initiated. Starting oral Amiodarone this afternoon. 3. HYPERTENSION - well controlled. Will adjust medications accordingly during hospital stay. 4. DYSLIPIDEMIA - recent lipid profile therefore no need to repeat. Continue Pravastatin. 5. RECENT TIA - suspect related to atrial fibrillation, now taking Eliquis for stroke prevention 6. UNTREATED SLEEP APNEA - Dr. Bishop has seen, evaluated and is treating patient 7. CHRONIC UTI - currently taking Macrodantin. Exam (Progress Note) - Constitutional Vitals: Period Temp Pulse Resp BP Sys/Jauregui Pulse Ox Last 24 Hr 97 F-98.6 F 60-72 16-20 115-137/62-77 95-99 Exam: General: [Appears well with no apparent distress.] [Pleasant and cooperative. ] [Appears comfortable.] HEENT: [PERRL, normocephalic, atraumatic. Mucous membranes moist. No jaundice noted. Conjunctiva moist and clear, sclerae anicteric] Neck: No JVD/HJR, no thyromegaly or lymphadenopathy noted. No carotid bruit appreciated Cardiac: [Regular rate and rhythm.] [No obvious murmur, rub or gallop.] Lungs: [Clear to auscultation without accessory muscle use to assist the respiratory pattern.] Not requiring oxygen Abdomen: Soft, bowel sounds normoactive. Nontender and nondistended. No abdominal bruit or thrill noted. No masses noted. Musculoskeletal: No fluid collection. Decreased range of motion is noted. Extremities: No clubbing, cyanosis noted. [ No edema noted.] Upper extremity pulses 2+. Lower extremity pulses 2+. Capillary refill less than 3 seconds. Skin: No unusual lesions or rashes. No skin breakdown appreciated. Neuro: Awake, alert and oriented 3. Moves all extremities well without hemiparesis or paralysis. No essential tremor is appreciated. Result/EKG - Labs CBC & BMP: 09/09/16 03:17 09/09/16 03:17 Lab Results: I have reviewed the past 24 hour labs Labs: Laboratory Results - last 24 hr 09/08/16 09/08/16 09/08/16 07:44 10:30 10:30 WBC RBC Hgb Hct MCV MCH MCHC RDW Plt Count MPV Neut % (Auto) Lymph % (Auto) Brown % (Auto) Eos % (Auto) Baso % (Auto) Neut # (Auto) Lymph # (Auto) Brown # (Auto) Eos # (Auto) Baso # (Auto) Immature Gran % Nucleated RBC % Immature Gran # Nucleated RBCs # Sodium Potassium Chloride Carbon Dioxide Anion Gap BUN Creatinine GFR Calculation BUN/Creatinine Ratio Glucose Calculated Osmolality Calcium Magnesium 2.2 Troponin I < 0.015 Free T4 1.00 TSH 3rd Generation 4.580 H Urine Opiates Screen Negative Ur Barbiturates Screen Negative Ur Phencyclidine Scrn Negative U Amphetamine/Methamph Negative U Benzodiazepines Scrn Negative U Cocaine Metab Screen Negative U Cannabinoids Screen Negative 09/08/16 09/09/16 09/09/16 12:51 03:17 03:17 WBC 7.2 RBC 3.71 L Hgb 11.3 L Hct 33.6 L MCV 90.6 MCH 31 MCHC 33.6 RDW 14.9 Plt Count 225 MPV 10.8 Neut % (Auto) 55.6 Lymph % (Auto) 29.2 Brown % (Auto) 9.6 Eos % (Auto) 4.4 Baso % (Auto) 0.6 Neut # (Auto) 4.0 Lymph # (Auto) 2.1 Brown # (Auto) 0.7 Eos # (Auto) 0.3 Baso # (Auto) 0.0 Immature Gran % 0.6 Nucleated RBC % 0.0 Immature Gran # 0.04 Nucleated RBCs # 0.00 Sodium 139 Potassium 4.1 Chloride 104 Carbon Dioxide 26 Anion Gap 13.1 BUN 22 H Creatinine 1.20 H GFR Calculation 48 BUN/Creatinine Ratio 18.00 Glucose 128 H Calculated Osmolality 281.5 Calcium 8.5 Magnesium 2.2 Troponin I < 0.015 Free T4 TSH 3rd Generation Urine Opiates Screen Ur Barbiturates Screen Ur Phencyclidine Scrn U Amphetamine/Methamph U Benzodiazepines Scrn U Cocaine Metab Screen U Cannabinoids Screen - EKG EKG results: interpreted by me EKG shows: sinus rhythm <Timmy Abernathy - Last Filed: 09/09/16 11:54> Cardiology - PN: Subj Interval history: Cardiology addendum Appreciate Dr. Bishop's help. Patient been started on CPAP. Currently receiving IV amiodarone. Telemetry shows sinus rhythm Blood pressure 120/70 in the left arm by me Decreased breath sounds but clear Regular rhythm no gallop Plan IV amiodarone Home tomorrow CPAP mask nightly Exam (Progress Note) - Constitutional Vitals: Period Temp Pulse Resp BP Sys/Jauregui Pulse Ox Last 24 Hr 97 F-98.6 F 60-72 16-20 115-137/62-77 95-99 Result/EKG - Labs CBC & BMP: 09/09/16 03:17 09/09/16 03:17 Labs: Laboratory Results - last 24 hr 09/08/16 09/09/16 09/09/16 12:51 03:17 03:17 WBC 7.2 RBC 3.71 L Hgb 11.3 L Hct 33.6 L MCV 90.6 MCH 31 MCHC 33.6 RDW 14.9 Plt Count 225 MPV 10.8 Neut % (Auto) 55.6 Lymph % (Auto) 29.2 Brown % (Auto) 9.6 Eos % (Auto) 4.4 Baso % (Auto) 0.6 Neut # (Auto) 4.0 Lymph # (Auto) 2.1 Brown # (Auto) 0.7 Eos # (Auto) 0.3 Baso # (Auto) 0.0 Immature Gran % 0.6 Nucleated RBC % 0.0 Immature Gran # 0.04 Nucleated RBCs # 0.00 Sodium 139 Potassium 4.1 Chloride 104 Carbon Dioxide 26 Anion Gap 13.1 BUN 22 H Creatinine 1.20 H GFR Calculation 48 BUN/Creatinine Ratio 18.00 Glucose 128 H Calculated Osmolality 281.5 Calcium 8.5 Magnesium 2.2 Troponin I < 0.015
--- NOTE | 2016-09-09 16:42 | Sleep Medicine Progress Note ---
Assessment and Plan (1) Sleep apnea Status: Chronic Assessment and plan: The information from the device used by Ms. Owens was obtained. She used the device 7 hours and 30 minutes last night and had a normal AHI of 2.4. Her average device pressure setting was 9.2 cm. She felt more refreshed upon awakening this morning and is ready to initiate treatment of her underlying sleep apnea. Due to insurance requirements, she will need to undergo repeat polysomnography for diagnosis of sleep apnea in order to initiate treatment. She will be scheduled at her earliest convenience for an overnight polysomnography at [facility]. She verbalized understanding and will contact our clinic for any concerns. Current Visit: Yes Qualifiers: Sleep apnea type: obstructive Qualified Code(s): G47.33 - Obstructive sleep apnea (adult) (pediatric) Sleep Medicine Subjective Interval history: Mrs. Owens has a positive history of obstructive sleep apnea as diagnosed in 2013. At that time, she had a diagnostic AHI of 6.7, more significant REM component with an AHI of 23.1 along with oxygen desaturations as low as 83%. Her study was done under the direction of Dr. Sancho Enamorado. She was prescribed CPAP following her CPAP titration but states her device was never received. There was some issue in regards to the prescription that was provided by Dr. Enamorado's office and she was never "set up" . She was admitted yesterday with atrial fibrillation which has responded well to medication. She was seen by Dr. Bishop yesterday and CPAP with a pressure ranging from 5-20 cm was ordered. She states she tolerated CPAP therapy well and felt more refreshed this morning. She was comfortable with the pressure did not have sleep disruption related to her therapy. She hopes to be discharged later today or tomorrow as she has improved. Exam (Progress Note) - Constitutional Vitals: Period Temp Pulse Resp BP Sys/Jauregui Pulse Ox Last 24 Hr 97 F-98.6 F 60-68 16-20 115-137/65-77 95-99 General appearance: normal weight, no acute distress - Head Head exam: Present: normocephalic, atraumatic - Eye Pupils: Present: JOVANNI - ENT ENT exam: Present: normal oropharynx - Neck Neck exam: Absent: lymphadenopathy, thyromegaly - Respiratory Respiratory exam: Present: clear to auscultation bilaterally. Absent: rales, rhonchi, wheezes - Cardiovascular Cardiovascular exam: Present: regular rate and rhythm - GI/Abdominal GI/Abdominal exam: Present: normal bowel sounds. Absent: tenderness - Extremities Exam Extremities exam: Present: normal capillary refill - Neurological Exam Neurological exam: Present: alert, oriented X3 - Psychiatric Psychiatric exam: Present: normal mood - Skin Skin exam: Present: warm, dry Results - Labs CBC & BMP: 09/09/16 03:17 09/09/16 03:17
[2016-09-09] MEDS: AMIODARONE 200 MG TABLET PO SCH ×2 (17:48→21:44)
[2016-09-09] MEDS: AMITRIPTYLINE 25 MG TABLET PO SCH (21:45)
[2016-09-09] MEDS: PRAVASTATIN 20 MG TABLET PO SCH (21:45)
[2016-09-10 05:46] LABS: Basophils % 0.5 % (0.0-0.8); Eosinophils # 0.3 10*3/uL (0.0-0.87); Eosinophils % 4.2 % (0.00-10.9); Hematocrit 35.8 VOL% (35.7-47.0); Immature Granulocytes % 0.8 %; Immature Granulocytes Absolute 0.06 #; Lymphocytes # 1.9 10*3/uL (1.4-4.0); Lymphocytes % 24.9 % (21.3-54.2); Mean Corpuscular HGB Conc 33.5 GM/DL (32-36); Mean Corpuscular Hemoglobin 30 PG (27-34); Mean Corpuscular Volume 89.5 FL (87-102); Monocytes # 0.7 10*3/uL (0.11-0.8); Monocytes % 9.4 % (1.7-12.7); Neutrophils # 4.7 10*3/uL (1.4-7.4); Neutrophils % 60.2 % (38.7-73.9); Platelet Count 243 T/CUMM (130-400); Red Cell Distribution Width 14.8 % (9.3-17.3); White Blood Count 7.8 T/CUMM (4-12)
[2016-09-10] MEDS: AMIODARONE INJ 450 MG in DEXTROSE 5% 241 ML IV SCH (05:47)
[2016-09-10 06:13] LABS: Osmolality,Calculated 282.7 MOS/KG (273-304)
[2016-09-10] MEDS: ALLOPURINOL 100 MG TABLET PO SCH (08:03)
[2016-09-10] MEDS: OMEGA 3 ACID ETHYL ESTERS 1 GM CAPSULE PO SCH (08:03)
[2016-09-10] MEDS: PANTOPRAZOLE 40 MG TABLET PO SCH (08:03)
[2016-09-10] MEDS: VALSARTAN 160 MG TABLET PO SCH (08:03)
[2016-09-10] MEDS: AMIODARONE 200 MG TABLET PO SCH (08:03)
[2016-09-10] MEDS: MAGNESIUM OXIDE 400 MG TABLET PO SCH (08:03)
[2016-09-10] MEDS: FUROSEMIDE 40 MG TABLET PO SCH (08:04)
[2016-09-10] MEDS: LORATADINE 10 MG TABLET PO SCH (08:04)
[2016-09-10] MEDS: PREGABALIN 75 MG CAPSULE PO SCH (08:04)
[2016-09-10] MEDS: NITROFURANTOIN MACRO/MONO 100 MG CAPSULE PO SCH (08:04)
[2016-09-10] MEDS: CALCIUM (CARBONATE)/VITAMIN D 600 MG-400 UNIT TABLET PO SCH (08:04)
[2016-09-10] MEDS: FOLIC ACID 1 MG TABLET PO SCH (08:04)
[2016-09-10] MEDS: APIXABAN 5 MG TABLET PO SCH (08:04)
[2016-09-10] MEDS: POTASSIUM CHLORIDE 8 MEQ CAPSULE PO SCH (08:04)
[2016-09-10] MEDS: ASPIRIN EC 81 MG TABLET PO SCH (08:05)
[2016-09-10] MEDS: CARVEDILOL 6.25 MG TABLET PO SCH (08:05)
--- NOTE | 2016-09-10 10:54 | Discharge Summary ---
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 Owens, 66WF, with history of hypertension, dyslipidemia, TIA. History of nonischemic cardiomyopathy requiring ICD approximately 10 years ago (EF now 45% per echo August 2016). History of untreated sleep apnea. She was recently diagnosed with atrial fibrillation when discovered to have a TIA. She was at [facility] in [place], [place] when this occurred and was started on Eliquis. Stress test September 11, 2015 revealed no reversible ischemia, low risk. Patient was admitted September 08, 2016 for one brief episode of atypical chest pain at rest. Cardiac biomarkers were negative. She was discovered to be in atrial fibrillation with rapid ventricular response with paroxysms of normal sinus rhythm. She was started on IV Amiodarone and converted to normal sinus rhythm. She remained in normal sinus rhythm for the greater than [address] Bishop was consulted, treated the patient for sleep apnea. patient felt as if her ICD may have fired the evening prior to discharge because she was " jolted awake". Telemetry was reviewed, no arrhythmia noted. Patient continues Eliquis. Having felt she met maximal medical therapy, patient is being discharged home in stable condition. Patient has a follow-up appointment with Dr. Mcclure and she has been encouraged to keep this appointment. We discontinued her event monitor while she was hospitalized as we discovered her arrhythmia/palpitations. At that visit the following will be obtained: BMP, magnesium, CBC. She will also be given a follow-up appoint with Dr. Bishop per his discretion. Patient had some concerns that she was having hypotension. After reviewing her lower blood pressures, these occurred while she was sleeping and her systolic blood pressure was noted to be in the 90s. I have asked her to monitor her blood pressure at home twice daily (once in the morning and once in the evening ) until she sees Dr. Mcclure's. I have asked her to bring the patient according to Dr. Mcclure's office to review. Having felt she met maximal medical therapy, patient is being discharged home in stable condition. Discharge medications include the following: Amiodarone 200 mg orally twice daily Valsartan 320 mg orally daily Eliquis 5 mg orally twice daily Lasix 20 mg orally daily as needed Pravastatin 20 mill grams orally each evening Nitroglycerin sublingual as needed Patterson 3 - one tablet BID Patient's blood pressure will not allow for introduction of a beta-pratibha. Does not need ASA as she is taking Eliquis She will resume her other preadmission medications including the following: Elavil 25 mill grams orally each evening Folic acid 1 mg orally daily Ergocalciferol 50,000 units orally every 7 days Loratadine 10 mg orally daily Magnesium oxide 200 mg orally daily Pantoprazole 40 mg orally daily Potassium chloride 8 mEq orally daily Lyrica 75 mg orally twice daily Macrodantin 100 mg orally twice daily 5 more days Cardiology addendum No further episodes of atrial fibrillation. Blood pressure 112/70. Home today. Plan CPAP mask nightly. Continue amiodarone loading 200 mg twice daily Continue other home medications as outlined Office visit with Dr. Mcclure scheduled - Time spent with patient Time with patient DS: Greater than 30 minutes Diagnosis - Discharge Diagnosis (1) PAF (paroxysmal atrial fibrillation) Status: Chronic (2) NICM (nonischemic cardiomyopathy) Status: Resolved (3) Dyslipidemia Status: Chronic (4) Sleep apnea Status: Chronic (5) Chronic UTI Status: Chronic (6) High risk medication use Status: Chronic (7) Chest pain Status: Resolved (8) Hyperlipidemia Status: Chronic Specialty Discharge - Follow Up or Referrals Follow up with: Red Mcclure MD [Physician] - (Please clarify patient has follow-up appointment. Please give her date and time. At visit: BMp, Mg+, CBC and EKG. Thanks) Discharge Plan - Discharge Data Disposition: Disch To Home/Self Care Condition at Discharge: Stable Discharge Diet: heart healthy Activity: resume usual activities as tolerated Hygiene: no restrictions Weight Bearing at Discharge: full weight bearing Driving: no restrictions Contact your physician if you experience:: fever over 101, Difficulty voiding, Redness or swelling, Nausea/Vomiting, Shortness of breath, Bleeding, pain uncontrolled by pain medications - Discharge Medications New Nitrofurantoin Macro/Osborne [Macrobid] 100 mg PO BID #10 capsule Amiodarone Tab [Cordarone Tab] 200 mg PO BID #60 tablet Furosemide Tab [Lasix Tab] 20 mg PO DAILY PRN #30 tablet PRN Reason: swelling Continue Pravastatin Sodium 20 mg PO BEDTIME Omeprazole [Prilosec] 20 mg PO DAILY Nitroglycerin Sl Tab [Nitrostat] 0.4 mg SL Q5M PRN PRN Reason: Chest Pain Magnesium Oxide 250 mg PO DAILY Loratadine Tab [Claritin Tab] 10 mg PO DAILY Folic Acid Tab 1 mg PO DAILY Apixaban [Eliquis] 5 mg PO BID Allopurinol 100 mg PO BID Valsartan [Diovan] 320 mg PO DAILY Pregabalin [Lyrica] 75 mg PO BID Potassium Chloride [Klor-Con 8] 8 meq PO DAILY Patterson-3 Fatty Acids/Fish Oil [Fish Oil 1,000 mg Softgel] 3 each PO DAILY Loperamide HCl [Loperamide] 2 mg PO Q4H PRN PRN Reason: Loose Stool Calcium Carbonate/Vitamin D3 [Calcium 600 + Vit D Tablet] 1 each PO DAILY Amitriptyline [Elavil] 25 mg PO BEDTIME Ergocalciferol (Vitamin D2) [Vitamin D2] 50,000 unit PO Q7DAY Discontinued Furosemide Tab [Lasix Tab] 40 mg PO BID Carvedilol [Coreg] 6.25 mg PO BID Aspirin EC Tab 81 mg PO DAILY - Follow Up or Referral Follow Up: Red Mcclure MD [Physician] - (Please clarify patient has follow-up appointment. Please give her date and time. At visit: BMp, Mg+, CBC and EKG. Thanks) - Forms/Instructions Exam - Constitutional Vitals: Period Temp Pulse Resp BP Sys/Jauregui Pulse Ox Last 24 Hr 96.7 F-99.4 F 59-73 16-20 89-117/51-71 92-97 Exam: General: [Appears well with no apparent distress.] [Pleasant and cooperative. ] [Appears comfortable.] HEENT: [PERRL, normocephalic, atraumatic. Mucous membranes moist. No jaundice noted. Conjunctiva moist and clear, sclerae anicteric] Neck: No JVD/HJR, no thyromegaly or lymphadenopathy noted. No carotid bruit appreciated Cardiac: [Regular rate and rhythm.] [No obvious murmur, rub or gallop.] Lungs: [Clear to auscultation without accessory muscle use to assist the respiratory pattern.] Not requiring oxygen Abdomen: Soft, bowel sounds normoactive. Nontender and nondistended. No abdominal bruit or thrill noted. No masses noted. Musculoskeletal: No fluid collection. Decreased range of motion is noted. Extremities: No clubbing, cyanosis noted. [ No edema noted.] Upper extremity pulses 2+. Lower extremity pulses 2+. Capillary refill less than 3 seconds. Skin: No unusual lesions or rashes. No skin breakdown appreciated. Neuro: Awake, alert and oriented 3. Moves all extremities well without hemiparesis or paralysis. No essential tremor is appreciated. Discharge Results Labs on day of discharge: Labs from last 24 hours 09/10/16 09/10/16 05:16 05:16 WBC 7.8 RBC 4.00 Hgb 12.0 Hct 35.8 MCV 89.5 MCH 30 MCHC 33.5 RDW 14.8 Plt Count 243 MPV 11.0 Neut % (Auto) 60.2 Lymph % (Auto) 24.9 Osborne % (Auto) 9.4 Eos % (Auto) 4.2 Baso % (Auto) 0.5 Neut # (Auto) 4.7 Lymph # (Auto) 1.9 Osborne # (Auto) 0.7 Eos # (Auto) 0.3 Baso # (Auto) 0.0 Immature Gran % 0.8 Nucleated RBC % 0.0 Immature Gran # 0.06 Nucleated RBCs # 0.00 Sodium 138 Potassium 4.0 Chloride 101 Carbon Dioxide 28 Anion Gap 13.0 BUN 28 H Creatinine 1.50 H GFR Calculation 37 BUN/Creatinine Ratio 18.00 Glucose 126 H Calculated Osmolality 282.7 Calcium 9.0 Magnesium 2.0 - Imaging and Cardiology Cardiology Procedure: report reviewed by me Procedure: Chest x-ray: report reviewed by me DS: Provider Date of admission: 09/09/16 08:30 Primary care physician: Manny Yancey DO Attending physician on admission: Timmy Abernathy MD Consults: 09/08/16 10:19 Consult to Pastoral Services [CONS] Routine Comment: Pastoral Screen: Request Corporate Events Director Visit 09/08/16 11:29 Consult to Sleep Center [CONS] Routine Reason for Sleep Center: Sleep Center Physician Consult Comment: untreated sleep apnea Discharging clinician: Megan Ramírez NP Expected date of discharge: 09/10/16
[2016-09-10 12:34] VITALS: BP 109/60
[2016-09-10] MEDS ORDERED: METOPROLOL SUCCINATE XL 25 MG TABLET PO SCH (17:00)
[2016-09-10] MEDS ORDERED: AMIODARONE 200 MG TABLET PO SCH (21:00)
[2016-09-11] MEDS ORDERED: FUROSEMIDE 20 MG TABLET PO SCH (09:00)
[2016-09-15] MEDS ORDERED: ERGOCALCIFEROL 50,000 UNIT CAPSULE PO SCH (09:00)
== END 2016-09-10 14:15 | disposition home or self-care (01) | DRG 309 ==
LOC: EDBD → EDUNIT# → N.EDINP 07:05 → N.ED 07:05 → N.EDINP 09:56 → N.TELEN 10:08
PROVIDERS: ADMIT Internal Medicine Cardiovascular Disease; ATTEND Internal Medicine Cardiovascular Disease

== ENCOUNTER 2016-10-15 11:26 | Inpatient (IN) ==
[2016-10-15 12:05] LABS: Basophils % 0.3 % (0.0-0.8); Eosinophils # 0.2 10*3/uL (0.0-0.87); Eosinophils % 1.3 % (0.00-10.9); Hematocrit 30.5 VOL% (35.7-47.0); Hemoglobin 10.3 GM/DL (12.0-16.0); Immature Granulocytes % 1.1 %; Immature Granulocytes Absolute 0.15 #; Lymphocytes # 1.4 10*3/uL (1.4-4.0); Lymphocytes % 10.2 % (21.3-54.2); Mean Corpuscular HGB Conc 33.8 GM/DL (32-36); Mean Corpuscular Hemoglobin 32 PG (27-34); Mean Corpuscular Volume 93.3 FL (87-102); Monocytes # 0.8 10*3/uL (0.11-0.8); Monocytes % 5.9 % (1.7-12.7); Neutrophils # 11.4 10*3/uL (1.4-7.4); Neutrophils % 81.2 % (38.7-73.9); Platelet Count 215 T/CUMM (130-400); Red Blood Count 3.27 MC/CUMM (3.8-5.5); Red Cell Distribution Width 15.2 % (9.3-17.3)
[2016-10-15 12:13] LABS: PT Patient Result 10.7 SECS
--- NOTE | 2016-10-15 12:20 | Emergency Department Note ---
Miguel Kang Brooke, am scribing for, and in the presence of, Andrea Saha MD 11:49 . Maria A Kang James D, MD, personally performed the services described in this documentation, ascribed by Carolina Rivera in my presence, and it is both accurate and complete . Arrival - Arrival Chief Complaint: Syncope Stated Complaint: c/o sickness yesterday; syncopal episode ED Nursing Triage Note: Patient with a syncopal episode today in [facility]. She reports onset of nausea without vomiting yesterday and experienced chills without fever. She does report blurry visit prior to her syncopal episode. Glucose per EMS 166. Mode of Arrival: Stretcher Limitations: No Limitations Source: Patient, EMS, RN Notes Reviewed Time Seen by Provider: 10/15/16 11:39 - History of Present Illness HPI Narrative: Patient is a 66 year old female who was brought into the ED by EMS following a syncopal episode that happened prior to arrival. Patient says she went to [place] and felt fine while there but when she got in her car, her vision became blurry. She says she had "a hard time driving." Patient was schedule to get lab work done, at [facility], so she drove there thinking they might could help her. She then had the syncopal episode while in the parking lot. Patient says she does not remember passing out but says she does remember being lightheaded before. She because nauseated after the episode and then vomited. She has history of afib and also has a defibrillator and she says she does not remember having a rapid heart rate or the defibrillator going off prior to the episode. She is currently complaining of shortness of breath that she says just started today. She also says the left side of her neck feels "stiff." EMS applied a c-collar which is still in place. Patient also has PMHx of HTN, TIA, gout, bladder problem, kidney stones, recurring urinary tract infections, GERD, and back/neck problems. 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 Mcclure. She is not a smoker and does not drink alcohol. Allergies/Adverse Reactions: Allergies Allergy/AdvReac Type Severity Reaction Status Date / Time meperidine [From Demerol] Allergy Hallucinati Verified 09/08/16 07:26 ng morphine Allergy Hypotension Verified 09/08/16 07:26 Home Medications: Home Medications Medication Instructions Recorded Confirmed Type Allopurinol 100 mg PO BID 09/08/16 09/08/16 History Amitriptyline [Elavil] 25 mg PO BEDTIME 09/08/16 09/08/16 History Apixaban [Eliquis] 5 mg PO BID 09/08/16 09/08/16 History Calcium Carbonate/Vitamin D3 1 each PO DAILY 09/08/16 09/08/16 History [Calcium 600 + Vit D Tablet] Ergocalciferol (Vitamin D2) 50,000 unit PO Q7DAY 09/08/16 09/08/16 History [Vitamin D2] Folic Acid Tab 1 mg PO DAILY 09/08/16 09/08/16 History Loperamide HCl [Loperamide] 2 mg PO Q4H PRN 09/08/16 09/08/16 History Loratadine Tab [Claritin Tab] 10 mg PO DAILY 09/08/16 09/08/16 History Magnesium Oxide 250 mg PO DAILY 09/08/16 09/08/16 History Nitroglycerin Sl Tab [Nitrostat] 0.4 mg SL Q5M PRN 09/08/16 09/08/16 History [place]-3 Fatty Acids/Fish Oil [Fish 3 each PO DAILY 09/08/16 09/08/16 History Oil 1,000 mg Softgel] Omeprazole [Prilosec] 20 mg PO DAILY 09/08/16 09/08/16 History Potassium Chloride [Klor-Con 8] 8 meq PO DAILY 09/08/16 09/08/16 History Pravastatin Sodium 20 mg PO BEDTIME 09/08/16 09/08/16 History Pregabalin [Lyrica] 75 mg PO BID 09/08/16 09/08/16 History Valsartan [Diovan] 320 mg PO DAILY 09/08/16 09/08/16 History Amiodarone Tab [Cordarone Tab] 200 mg PO BID #60 tablet 09/10/16 Rx Furosemide Tab [Lasix Tab] 20 mg PO DAILY PRN #30 tablet 09/10/16 Rx Nitrofurantoin Macro/Rich 100 mg PO BID #10 capsule 09/10/16 Rx [Macrobid] Review of System - Review of System 12 point system: reviewed and no additional remarkable complaints except as stated - Review of System Constitutional: Absent: fever Respiratory: Present: other (shortness of breath). Absent: respiratory distress Cardiovascular: Present: syncope Musculoskeletal: Present: neck pain (left side "stiff") Skin: Absent: rash Medical,Surgical,& Family Hx - Medical History Cardio: History of: Cardiac Dysrhythmia, Hypertension, Pacemaker No history of: CAD, [place] Neurology: History of: TIA (08/27/16) Rheumatology: History of;: Gout Genitourinary: History of: Bladder Problem, Kidney Stones, Recurring Urinary Tract Infections Gastrointestinal: History of: GERD Musculoskeletal: History of: Back/Neck Problems, Musculoskeletal Problems - Surgical History Cardiac Surgeries: Sugical HX of: Cardiac Catheterization Abdominal Surgeries: Surgical HX of: Appendectomy, Cholecystectomy Reproductive Surgeries: Surgical HX of;: Hysterectomy, Tubal Ligation Orthopedic Surgeries: Surgical HX of;: Orthopedic Surgery (right knee repair) - Family History Family History: Reports;: Family Cancer, Family Heart Disease, Family Hypertension, Family Stroke - Social History Smoking Status: Never smoker Frequency of Alcohol Use: None Type of Drug Use: None Exam Vital Signs: Vital Signs Temperature 99.7 F H 10/15/16 11:27 Pulse Rate 77 10/15/16 11:27 Respiratory Rate 16 10/15/16 11:39 Blood Pressure 151/97 10/15/16 11:27 O2 Sat by Pulse Oximetry 96 10/15/16 11:59 GENERAL: This is a well-nourished well-developed chronically ill-appearing white female in no apparent distress. VITAL SIGNS: Reviewed HEENT: Head is atraumatic and normocephalic. Pupils are equal round react to light. Extraocular movements are intact. Oropharynx is benign with moist mucous membranes. NECK: Neck is soft and supple without tenderness. There are no masses. There is no lymphadenopathy. LUNGS: Lungs are clear to auscultation. Chest rises symmetrically. There is no chest wall tenderness. CV: Heart is regular rate and rhythm without murmurs rubs or gallops. ABDOMEN: Abdomen is soft, nontender to palpation. There are no abdominal abnormal masses palpated. There is no organomegaly. Bowel sounds are present and active. SKIN: Skin is warm and dry. No rash. Pallor EXTREMITIES: Patient has full range of motion without tenderness. There is 1+ pitting pedal edema. NEUROLOGIC: Awake alert and oriented 4. Cranial nerves II through XII are grossly intact. Motor is 5 over 5 in all extremities bilaterally. Course - Consultations Consultation #1: Discussed with Dr. Mclcure. Patient will be admitted to his service. Initial orders written for him. Care will be assumed by him upon the patient's arrival to the [facility]. Time: 13:33 Results - Labs CBC & BMP: 10/15/16 11:56 10/15/16 11:56 Lab Results: I have reviewed the patients labs Labs: Laboratory Tests 10/15/16 11:56 Troponin I < 0.015 - EKG EKG results: interpreted by ERMD - Impressions EKG: Normal sinus rhythm with a rate of 78, old anterolateral NH, ST segment depression and T-wave inversion inferiorly and laterally. - Diagnostic Findings Procedure: Chest x-ray: image reviewed by me (AICD in position with leads in place.) Disposition Clinical Impression: Syncope, Cardiomyopathy, PAF (paroxysmal atrial fibrillation), Dyspnea Case discussed with: patient Disposition: Still a Patient Condition: Guarded Time of Disposition: 12:20
--- NOTE | 2016-10-15 12:30 | XRay Report ---
XR chest 1V portable Indication: SOB Comparison: Chest x-ray dated September 08, 2016 Technique: Single frontal view of the chest. Findings: The cardiomediastinal silhouette is stable in configuration. Pacemaker apparatus again demonstrated. Chronic change of the lungs without focal consolidation, pleural effusion, or pneumothorax. Visualized osseous and surrounding soft tissue structures appear grossly unchanged. IMPRESSION: Stable chest x-ray without acute cardiopulmonary process demonstrated. PROCEDURE INTERPRETED AT [facility] DEPARTMENT OF RADIOLOGY Final Report Signed by: Dr Dheeraj Peñaloza
[2016-10-15 12:34] LABS: Apearance,Urine CLEAR (Clear); Bacteria,Urine Occasional /HPF (Few); Bilirubin,Urine Negative (Negative); Blood, Urine Negative (Negative); Glucose,Urine (UA) 50 mg/dL (Negative); Hyaline Casts,Urine 12 /LPF (0-3); Ketones,Urine Negative (Negative); Mucus,Urine Occasional /LPF (Occasional); Nitrite,Urine Negative (Negative); Protein,Urine Negative; RBC,Urine <1 /HPF (0-4); Squamous Epithelial Cell,Urine Occasional /HPF (0-10); Urine Color Yellow (Yellow); Urine Specific Gravity 1.013 (1.001-1.035); Urine Urobilinogen < 2.0 EU/DL (0.2-1.0); WBC,Urine 1 /HPF (0-6)
--- NOTE | 2016-10-15 12:35 | CT Report ---
CT head/brain wo con Indication: Syncope Comparison: CT brain dated February 16, 2013 Technique: Multiple axial tomographic images of the brain were obtained without the use of intravenous contrast. Findings: Midline structures are nondisplaced. There is no convincing evidence of acute intracranial hemorrhage . Mild global volume loss present. Mild periventricular and subcortical hypoattenuation noted which is nonspecific but consistent with chronic microvascular ischemic change. Demyelinating process and vasculitis less likely considerations. Atherosclerotic calcifications demonstrated. Small left mastoid effusion. Paranasal sinuses clear. IMPRESSION: Small left mastoid effusion. Clinically correlate for mastoiditis. Otherwise no acute intracranial abnormality demonstrated. Probable mild chronic microvascular ischemic change and volume loss. The CT exam was performed using one or more of the following dose reduction techniques: Automated exposure control, adjustment of the mA and/or kV according to patient size, or use of iterative reconstruction technique. PROCEDURE INTERPRETED AT [facility] DEPARTMENT OF RADIOLOGY Final Report Signed by: Dr Dheeraj Peñaloza
[2016-10-15 12:36] LABS: Alanine Aminotransferase 36 U/L (13-56); Albumin 3.6 G/DL (3.4-5.0); Alkaline Phosphatase 57 U/L (45-117); Aspartate Amino Transferase 31 U/L (0-37); Bilirubin,Total < 0.39 MG/DL (0.2-1.0); Blood Urea Nitrogen 26 MG/DL (7-18); Calcium 8.9 MG/DL (8.5-10.1); Glucose 180 MG/DL (74-106); Potassium 4.3 MMOL/L (3.5-5.1); Sodium 136 MMOL/L (136-145); Troponin I Only < 0.015 NG/ML (0.00-0.045)
--- NOTE | 2016-10-15 12:39 | CT Report ---
CT cervical spine wo con Indication: Syncope, neck pain Comparison: None Technique: Multiple axial tomographic images of the cervical spine were obtained without the use of intravenous contrast. Coronal and sagittal reformatted images provided. Findings: Straightening of normal cervical lordosis which may be positional or secondary to muscle spasm. No significant anterolisthesis or retrolisthesis. Moderate to severe loss of disc space height at C3-4, C4-5, C5-6, and C6-7 with posterior disc osteophyte complexes noted to at these levels as well as mild spinal canal narrowing. Scattered posterior facet and uncovertebral joint hypertrophy noted. There is moderate bilateral neuroforaminal narrowing at C3-4, C4-5, C5-6, and C6-7. Vertebral body heights appear maintained. Mild multilevel anterior vertebral body osteophyte formation. IMPRESSION: No convincing CT evidence of acute injury involving the osseous cervical spine. Degenerative change and malalignment of the cervical spine as detailed above. The CT exam was performed using one or more of the following dose reduction techniques: Automated exposure control, adjustment of the mA and/or kV according to patient size, or use of iterative reconstruction technique. PROCEDURE INTERPRETED AT [facility] DEPARTMENT OF RADIOLOGY Final Report Signed by: Dr Dheeraj Peñaloza
[2016-10-15 12:48] LABS: Barbiturates Screen,Urine Negative (Negative); Benzodiazepines Screen,Urine Negative (Negative); Cannabinoid Screen,Urine Negative (Negative); Opiate Screen,Urine Negative (Negative); Phencyclidine Screen,Urine Negative (Negative)
--- NOTE | 2016-10-15 13:10 | CT Report ---
CT chest PE study Indication: SOB Comparison: Chest CT dated September 08, 2016 Technique: Multiple axial tomographic images of the chest were obtained after the administration of 100 cc Omnipaque 350 intravenous contrast. PE protocol followed. Coronal and sagittal maximum intensity projection images provided. Findings: Stable mild cardiomegaly. Left-sided pacemaker apparatus appears grossly unchanged. Coronary artery calcifications. No segmental or larger pulmonary embolism demonstrated. Granulomatous calcification of left upper lobe. Mild patchy groundglass opacities demonstrated within the perihilar right upper lobe suspicious for asymmetric pulmonary edema or infectious/inflammatory process. Prior cholecystectomy. Visualized osseous and surrounding soft tissue structures appear grossly unchanged. IMPRESSION: Stable mild cardiomegaly. No segmental or larger pulmonary embolism demonstrated. Mild patchy groundglass opacities demonstrated within the perihilar right upper lobe suspicious for asymmetric pulmonary edema or infectious/inflammatory process. The CT exam was performed using one or more of the following dose reduction techniques: Automated exposure control, adjustment of the mA and/or kV according to patient size, or use of iterative reconstruction technique. PROCEDURE INTERPRETED AT [facility] DEPARTMENT OF RADIOLOGY Final Report Signed by: Dr Dheeraj Peñaloza
--- NOTE | 2016-10-15 15:24 | Cardiology Consult Note ---
Assessment and Plan - Time spent with patient Time spent with patient: Greater than 30 minutes (1) Syncope Status: Acute Assessment and plan: See plan of care listed below. Current Visit: Yes (2) Mastoiditis Status: Acute Assessment and plan: See plan of care listed below. Current Visit: Yes (3) Leukocytosis Status: Acute Assessment and plan: See plan of care listed below. Current Visit: Yes (4) History of atrial fibrillation Status: Chronic Assessment and plan: See plan of care listed below. Current Visit: Yes (5) Hypertension Status: Chronic Assessment and plan: See plan of care listed below. Current Visit: Yes (6) AICD (automatic cardioverter/defibrillator) present Status: Chronic Assessment and plan: See plan of care listed below. Current Visit: Yes (7) High risk medication use Status: Chronic Assessment and plan: See plan of care listed below. Current Visit: No (8) Hyperlipidemia Status: Chronic Assessment and plan: See plan of care listed below. Current Visit: No (9) Sleep apnea Status: Chronic Assessment and plan: See plan of care listed below. Current Visit: No Qualifiers: Sleep apnea type: obstructive Qualified Code(s): G47.33 - Obstructive sleep apnea (adult) (pediatric) (10) NICM (nonischemic cardiomyopathy) Status: Resolved Assessment and plan: See plan of care listed below. 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 Owens, 66WF, is routinely followed by Dr. Mcclure. She was last seen in cardiology clinic June 19, 2016. Risk factors include: Hypertension, dyslipidemia, TIA. History of nonischemic cardiomyopathy requiring ICD approximately 10 years ago (EF now 50% per echo May,). History of sleep apnea. She was recently diagnosed with atrial fibrillation when discovered to have a TIA. [place] was [place] of [place] at that time, started on Eliquis. Stress test September 11, 2015 revealed no reversible ischemia, low risk. She was just admitted to the hospital August 2016 for atypical chest pain. She ruled out for RI. Cardiac biomarkers negative 3. She was discovered to be in A. fib RVR with paroxysms of normal sinus rhythm. She was converted with IV amiodarone and subsequently started on p.o. She has remained in normal sinus rhythm since that time and denies any heart racing/palpitations since being chemically cardioverted. Patient presented to the emergency department earlier today after having a syncopal episode. She reports that she has felt weak and lightheaded since yesterday. She confirms feeling very cold and having chills. She denies fever. However, she has a low-grade fever here in the emergency department. She reports that she started feeling better around 4 PM. However, when she awoke this morning she began feeling weak, tired and lightheaded again. She went to the [employer] store and when leaving she began to feel slightly worse and more weak. When she got in the car her vision became slightly blurry. She then drove herself to the [facility] for lab draw as she has an appointment with Dr. Mcclure next week. When she got out of the car, she reports a syncopal episode. She is unaware of how long she was "out." She denies any seizure-like activity. Did not lose control of bowel or bladder. Denies chest pain, heaviness and tightness. Also denies heart racing/palpitations. She reports that [facility] employees assisted her in the wheelchair and she was then transported to the emergency department for further evaluation. Cardiology has been consulted to further evaluate patient's syncopal episode. She will be admitted under hospital medicine service and housed in the telemetry unit. We will further observe her on the monitoring manager for cardiac dysrhythmias. Of note, patient denies fever, cough, abdominal pain, nausea, vomiting, abdominal pain, ear pain, dysuria, shortness of breath, dyspnea on exertion, lower extremity edema and orthopnea. She was seen and examined in the emergency department. She is currently without complaints of chest pain, heaviness and tightness. Denies palpitations and heart racing. Currently normal sinus rhythm per media monitor. Blood pressure and heart rate stable. Patient's ICD has been interrogated in the emergency department and did not reveal any evidence of cardiac dysrhythmias. At this point, patient syncope does not need seem to be cardiac related. I will order echocardiogram and check orthostatic vital signs. Patient does have leukocytosis with left shift. Head CT reveals mastoiditis. Chest CT does not reveal any evidence of PE. Mild patchy hepatic disease to the right or noted suspicious for infectious process. Patient will be admitted under hospital medicine's service. She will be housed on the telemetry unit. I have discussed with Dr. Mcclure. Will await his additional recommendations. Will continue to follow. ASSESSMENT/PLAN 1. SYNCOPE - Patient a syncopal episode earlier today. Unknown etiology. This does not appear to be cardiac in nature. ICD was interrogated in the emergency department which did not reveal any evidence of cardiac dysrhythmias. I will order echocardiogram and check orthostatic vital signs. Patient will be admitted to the telemetry unit. We will continue to monitor her on the media monitor and observe for arrhythmias. I have discussed this case with Dr. Mcclure. Will await his additional recommendations. 2. HISTORY OF NONISCHEMIC CARDIOMYOPATHY - Patient does have history of idiopathic cardiomyopathy. She reports that she had a heart catheterization several years ago which did not reveal any obstructive disease. Patient's most recent echocardiogram May 2016 revealed preserved LV function, EF of 50%. Echocardiogram has been ordered this hospitalization in order to reassess her LV function. Further recommendations to follow once echo results have been reviewed. It appears that patient's Coreg was discontinued during her last hospitalization due to episodes of bradycardia. Will monitor this hospitalization and this medication could possibly be reinitiated. Continue ARB. 3. MASTOIDITIS - Management per hospital medicine. 4. LEUKOCYTOSIS WITH LEFT SHIFT - CT chest revealed possible pneumonia. Low- grade fever. UA does not reveal UTI. I will order blood cultures. Further management will be deferred to hospital medicine. 5. STATUS POST AICD - This is been interrogated the emergency department does not reveal any evidence of cardiac dysrhythmias. 6. HISTORY OF QASIM - Continue current plan of care. 7. HISTORY OF ATRIAL FIBRILLATION - History of paroxysmal atrial fibrillation. Diagnosed this past year. Continue Eliquis. ICD has been interrogated no episodes of atrial fibrillation noted. Continue amiodarone. Will monitor patient on the telemetry unit for recurrent atrial fib. 8. HYPERTENSION - Diovan has been reinitiated. Will monitor blood pressure and adjust as needed throughout her hospitalization. 9. HYPERLIPIDEMIA - Continue lipid-lowering agent. Check lipid panel in the morning. CC: - Home Medications and Allergies Home Medications: Home Medications Medication Instructions Recorded Confirmed Type Allopurinol 100 mg PO BID 09/08/16 10/15/16 History Amitriptyline [Elavil] 25 mg PO BEDTIME 09/08/16 10/15/16 History Apixaban [Eliquis] 5 mg PO BID 09/08/16 10/15/16 History Calcium Carbonate/Vitamin D3 1 each PO QAM 09/08/16 10/15/16 History [Calcium 600 + Vit D Tablet] Folic Acid Tab 1 mg PO QAM 09/08/16 10/15/16 History Loperamide HCl [Loperamide] 2 mg PO Q4H PRN 09/08/16 10/15/16 History Loratadine Tab [Claritin Tab] 10 mg PO QAM 09/08/16 10/15/16 History Magnesium Oxide 250 mg PO QAM 09/08/16 10/15/16 History Nitroglycerin Sl Tab [Nitrostat] 0.4 mg SL Q5M PRN 09/08/16 10/15/16 History [place]-3 Fatty Acids/Fish Oil [Fish 3 each PO QAM 09/08/16 10/15/16 History Oil 1,000 mg Softgel] Omeprazole [Prilosec] 20 mg PO QAM 09/08/16 10/15/16 History Potassium Chloride [Klor-Con 8] 8 meq PO QAM 09/08/16 10/15/16 History Pravastatin Sodium 20 mg PO BEDTIME 09/08/16 10/15/16 History Pregabalin [Lyrica] 75 mg PO BID 09/08/16 10/15/16 History Valsartan [Diovan] 320 mg PO QAM 09/08/16 10/15/16 History Amiodarone Tab [Cordarone Tab] 200 mg PO BID #60 tablet 09/10/16 10/15/16 Rx Ergocalciferol (Vitamin D2) 2,000 unit PO QAM 10/15/16 10/15/16 History [Vitamin D2] Furosemide Tab [Lasix Tab] 20 mg PO QAM 10/15/16 10/15/16 History Allergies/Adverse Reactions: Allergies Allergy/AdvReac Type Severity Reaction Status Date / Time meperidine [From Demerol] Allergy Hallucinati Verified 09/08/16 07:26 ng morphine Allergy Hypotension Verified 09/08/16 07:26 - Constitutional Constitutional: Present: as per HPI, chills, lethargy, malaise, weakness. Absent: fatigue, fever(s), frequent falls, headache(s), increased appetite - EENT Eyes: Present: as per HPI, blurry vision, diplopia Ears: Present: as per HPI. Absent: ear discharge, ear pain, tinnitus Nose, mouth and throat: Present: as per HPI, neck pain - Cardiovascular Cardiovascular: Present: as per HPI, lightheadedness. Absent: chest pain at rest, chest pain with activity, claudication, diaphoresis, dyspnea, dyspnea on exertion, edema, radiating jaw, neck or arm pain, orthopnea, palpitations, PND - Respiratory Respiratory: Present: as per HPI. Absent: cough, dyspnea, hemoptysis, dyspnea on exertion, wheezing, snoring, pain on inspiration, change in phlegm color - Gastrointestinal Gastrointestinal: Present: as per HPI. Absent: abdominal pain, heartburn, melena, nausea, vomiting - Genitourinary Genitourinary: Absent: difficulty urinating, dysuria, flank pain - Neurological Neurological: Present: as per HPI, disequilibrium, dizziness, syncope. Absent: abnormal speech, behavioral changes Medical,Surgical,& Family Hx - Medical History Cardio: History of: Cardiac Dysrhythmia, Hypertension, Pacemaker, Cardiovascular Problems (History of cardio mild) No history of: CAD, RI Neurology: History of: TIA (08/27/16) Endocrine: History of: Dyslipidemia Rheumatology: History of;: Gout Genitourinary: History of: Bladder Problem, Kidney Stones, Recurring Urinary Tract Infections Gastrointestinal: History of: GERD Musculoskeletal: History of: Back/Neck Problems, Musculoskeletal Problems - Surgical History Cardiac Surgeries: Sugical HX of: Cardiac Catheterization Abdominal Surgeries: Surgical HX of: Appendectomy, Cholecystectomy Reproductive Surgeries: Surgical HX of;: Hysterectomy, Tubal Ligation Orthopedic Surgeries: Surgical HX of;: Orthopedic Surgery (right knee repair) - Family History Family History: Reports;: Family Cancer, Family Heart Disease, Family Hypertension, Family Stroke - Social History Smoking Status: Never smoker Frequency of Alcohol Use: None Type of Drug Use: None Marital Status: Lives With:: Spouse Functional capacity: independent ambulation Physical Examination Vital Signs Temp Pulse Resp BP Pulse Ox 99.7 F H 77 18 151/97 100 10/15/16 11:27 10/15/16 11:27 10/15/16 11:27 10/15/16 11:27 10/15/16 11:27 Exam: General: Appears well with no apparent distress. Pleasant and cooperative. Appears comfortable. HEENT: PERRL, normocephalic, atraumatic. Mucous membranes moist. No jaundice noted. Conjunctiva moist and clear, sclerae anicteric Neck: No JVD/HJR, no thyromegaly or lymphadenopathy noted. No carotid bruit appreciated Cardiac: Regular rate and rhythm. No murmur rub or gallop. Lungs: Clear to auscultation without accessory muscle use to assist the respiratory pattern. Abdomen: Soft, bowel sounds normoactive. Nontender and nondistended. No abdominal bruit or thrill noted. No masses noted. Extremities: No clubbing, cyanosis noted. No edema noted. Upper extremity pulses 2+. Lower extremity pulses 2+. Capillary refill less than 3 seconds. Skin: No unusual lesions or rashes. No skin breakdown appreciated. Neuro: Awake, alert and oriented 3. Moves all extremities well without hemiparesis or paralysis. No essential tremor is appreciated. Result/EKG - Labs CBC & BMP: 10/15/16 11:56 10/15/16 11:56 Lab Results: I have reviewed the past 24 hour labs Labs: Laboratory Results - last 24 hr 10/15/16 10/15/16 10/15/16 11:53 11:56 11:56 WBC 14.0 H RBC 3.27 L Hgb 10.3 L Hct 30.5 L MCV 93.3 MCH 32 MCHC 33.8 RDW 15.2 Plt Count 215 MPV 11.0 Neut % (Auto) 81.2 H Lymph % (Auto) 10.2 L [place] % (Auto) 5.9 Eos % (Auto) 1.3 Baso % (Auto) 0.3 Neut # (Auto) 11.4 H Lymph # (Auto) 1.4 [place] # (Auto) 0.8 Eos # (Auto) 0.2 Baso # (Auto) 0.0 Immature Gran % 1.1 Nucleated RBC % 0.0 Immature Gran # 0.15 Nucleated RBCs # 0.00 Immature Plt Fraction 0.0 INR 1.0 PT Patient/Control Mix 10.7 Sodium Potassium Chloride Carbon Dioxide Anion Gap BUN Creatinine GFR Calculation BUN/Creatinine Ratio Glucose POC Glucose 199 H Calculated Osmolality Calcium Total Bilirubin AST ALT Alkaline Phosphatase Troponin I B-Natriuretic Peptide Total Protein Albumin Globulin Albumin/Globulin Ratio Urine Color Urine Appearance Urine pH Ur Specific [place] Urine Protein Urine Glucose (UA) Urine Ketones Urine Blood Urine Nitrate Urine Bilirubin Urine Urobilinogen Urine Leukocytes Urine RBC Urine WBC Ur Squamous Epith Cells Urine Bacteria Hyaline Casts Urine Mucus Ur Culture Indicated? Urine Opiates Screen Ur Barbiturates Screen Ur Phencyclidine Scrn U Amphetamine/Methamph U Benzodiazepines Scrn U Cocaine Metab Screen U Cannabinoids Screen 10/15/16 10/15/16 10/15/16 11:56 11:56 12:29 WBC RBC Hgb Hct MCV MCH MCHC RDW Plt Count MPV Neut % (Auto) Lymph % (Auto) [place] % (Auto) Eos % (Auto) Baso % (Auto) Neut # (Auto) Lymph # (Auto) [place] # (Auto) Eos # (Auto) Baso # (Auto) Immature Gran % Nucleated RBC % Immature Gran # Nucleated RBCs # Immature Plt Fraction INR PT Patient/Control Mix Sodium 136 Potassium 4.3 Chloride 100 Carbon Dioxide 28 Anion Gap 12.3 BUN 26 H Creatinine 1.60 H GFR Calculation 34 BUN/Creatinine Ratio 16.00 Glucose 180 H POC Glucose Calculated Osmolality 281.0 Calcium 8.9 Total Bilirubin < 0.39 AST 31 ALT 36 Alkaline Phosphatase 57 Troponin I < 0.015 B-Natriuretic Peptide 15 Total Protein 7.0 Albumin 3.6 Globulin 3.4 Albumin/Globulin Ratio 1.0 L Urine Color Yellow Urine Appearance Clear Urine pH 6.0 Ur Specific [place] 1.013 Urine Protein Negative Urine Glucose (UA) 50 Urine Ketones Negative Urine Blood Negative Urine Nitrate Negative Urine Bilirubin Negative Urine Urobilinogen < 2.0 H Urine Leukocytes Negative Urine RBC <1 Urine WBC 1 Ur Squamous Epith Cells Occasional Urine Bacteria Occasional Hyaline Casts 12 Urine Mucus Occasional Ur Culture Indicated? Not indicated Urine Opiates Screen Ur Barbiturates Screen Ur Phencyclidine Scrn U Amphetamine/Methamph U Benzodiazepines Scrn U Cocaine Metab Screen U Cannabinoids Screen 10/15/16 12:29 WBC RBC Hgb Hct MCV MCH MCHC RDW Plt Count MPV Neut % (Auto) Lymph % (Auto) [place] % (Auto) Eos % (Auto) Baso % (Auto) Neut # (Auto) Lymph # (Auto) [place] # (Auto) Eos # (Auto) Baso # (Auto) Immature Gran % Nucleated RBC % Immature Gran # Nucleated RBCs # Immature Plt Fraction INR PT Patient/Control Mix Sodium Potassium Chloride Carbon Dioxide Anion Gap BUN Creatinine GFR Calculation BUN/Creatinine Ratio Glucose POC Glucose Calculated Osmolality Calcium Total Bilirubin AST ALT Alkaline Phosphatase Troponin I B-Natriuretic Peptide Total Protein Albumin Globulin Albumin/Globulin Ratio Urine Color Urine Appearance Urine pH Ur Specific [place] Urine Protein Urine Glucose (UA) Urine Ketones Urine Blood Urine Nitrate Urine Bilirubin Urine Urobilinogen Urine Leukocytes Urine RBC Urine WBC Ur Squamous Epith Cells Urine Bacteria Hyaline Casts Urine Mucus Ur Culture Indicated? Urine Opiates Screen Negative Ur Barbiturates Screen Negative Ur Phencyclidine Scrn Negative U Amphetamine/Methamph Negative U Benzodiazepines Scrn Negative U Cocaine Metab Screen Negative U Cannabinoids Screen Negative
--- NOTE | 2016-10-15 15:36 | EKG Report ---
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
--- NOTE | 2016-10-15 16:03 | Hospitalist History & Physical ---
<Brian Abel - Last Filed: 10/15/16 15:50> Assessment and Plan - Time spent with patient Time spent with patient: Greater than 30 minutes (1) Syncope Status: Acute Assessment and plan: Patient has been admitted for observation. Will obtain echocardiogram, serial EKG, orthostatic vital signs, trend cardiac enzymes. Current Visit: Yes (2) Mastoiditis Status: Acute Assessment and plan: This may be causing her leukocytosis. We will treat with cephalosporins. Current Visit: Yes (3) Leukocytosis Status: Acute Assessment and plan: As above. Current Visit: Yes (4) History of atrial fibrillation Status: Chronic Assessment and plan: Patient is chronically anticoagulated on Eliquis. We will continue this. She is currently rate controlled. Current Visit: Yes (5) Hypertension Status: Chronic Assessment and plan: Continue home medications. We will hold Lasix and any vasodilating agent as there is suspicious that orthostatic hypotension may be the culprit here. Current Visit: Yes (6) AICD (automatic cardioverter/defibrillator) present Status: Chronic Assessment and plan: AICD was interrogated today no evidence of cardiac dysrhythmias. Current Visit: Yes (7) Pneumonia Status: Acute Assessment and plan: Chest CT shows mild patchy groundglass opacities demonstrated within the perihilar right upper lobe suspicious for asymmetric pulmonary edema or infectious/inflammatory process. She has been treated with cephalosporins. Current Visit: Yes History of Present Illness Chief complaint: Syncope History of present illness: Ms. Owens is a 66 year old white female with a past medical history significant for hypertension, atrial fibrillation, heart failure, ventricular arrhythmia, TIA, AICD placement who presents today for further evaluation of syncope having onset this morning. Patient states that she was in the parking of the [facility] office preparing to have her blood drawn when she passed out. She states that she did not feel dizzy, her AICD did not go off, but she did hit her head as she fell. She was brought to the [place] emergency room for further evaluation. On presentation, the patient is asymptomatic. Head CT is negative for evidence of CVA, however it does show mastoiditis. X-rays and cervical spine CT are negative for any fractures. EKG shows sinus rhythm. Her AICD was interrogated in the emergency room and did not reveal any evidence of cardiac dysrhythmias. Patient's blood pressure has been labile in the ER. She states that she took all of her medicines as prescribed this morning including beta blockade and diuretic. Patient's only complaint at this point is muscular skeletal pain related to her fall and a headache. She denies blurry vision, chest pain, abdominal pain, nausea or vomiting, lower extremity edema. Lab work is positive for WBC 14, hemoglobin 10.3, hematocrit 30.5, BUN 26, creatinine 1.6, glucose 180. Urinalysis is negative for infection. UDS is negative. This case been discussed with both Dr. Saha, ER physician, and Dr. Rain, admitting physician, and the patient will be admitted to telemetry for observation overnight and further evaluation. Given the patient's cardiac history, it will be prudent to consult cardiology during her course. Patient is a full code. Home medications have been reviewed and reconciled. Home Medications Medication Instructions Recorded Confirmed Type Allopurinol 100 mg PO BID 09/08/16 10/15/16 History Amitriptyline [Elavil] 25 mg PO BEDTIME 09/08/16 10/15/16 History Apixaban [Eliquis] 5 mg PO BID 09/08/16 10/15/16 History Calcium Carbonate/Vitamin D3 1 each PO QAM 09/08/16 10/15/16 History [Calcium 600 + Vit D Tablet] Folic Acid Tab 1 mg PO QAM 09/08/16 10/15/16 History Loperamide HCl [Loperamide] 2 mg PO Q4H PRN 09/08/16 10/15/16 History Loratadine Tab [Claritin Tab] 10 mg PO QAM 09/08/16 10/15/16 History Magnesium Oxide 250 mg PO QAM 09/08/16 10/15/16 History Nitroglycerin Sl Tab [Nitrostat] 0.4 mg SL Q5M PRN 09/08/16 10/15/16 History [place]-3 Fatty Acids/Fish Oil [Fish 3 each PO QAM 09/08/16 10/15/16 History Oil 1,000 mg Softgel] Omeprazole [Prilosec] 20 mg PO QAM 09/08/16 10/15/16 History Potassium Chloride [Klor-Con 8] 8 meq PO QAM 09/08/16 10/15/16 History Pravastatin Sodium 20 mg PO BEDTIME 09/08/16 10/15/16 History Pregabalin [Lyrica] 75 mg PO BID 09/08/16 10/15/16 History Valsartan [Diovan] 320 mg PO QAM 09/08/16 10/15/16 History Amiodarone Tab [Cordarone Tab] 200 mg PO BID #60 tablet 09/10/16 10/15/16 Rx Ergocalciferol (Vitamin D2) 2,000 unit PO QAM 10/15/16 10/15/16 History [Vitamin D2] Furosemide Tab [Lasix Tab] 20 mg PO QAM 10/15/16 10/15/16 History Allergies Allergy/AdvReac Type Severity Reaction Status Date / Time meperidine [From Demerol] Allergy Hallucinati Verified 09/08/16 07:26 ng morphine Allergy Hypotension Verified 09/08/16 07:26 Medical,Surgical,& Family Hx - Medical History Cardio: History of: Cardiac Dysrhythmia, Hypertension, Pacemaker, Cardiovascular Problems (History of cardio mild) No history of: CAD, [place] Neurology: History of: TIA (08/27/16) Endocrine: History of: Dyslipidemia Rheumatology: History of;: Gout Genitourinary: History of: Bladder Problem, Kidney Stones, Recurring Urinary Tract Infections Gastrointestinal: History of: GERD Musculoskeletal: History of: Back/Neck Problems, Musculoskeletal Problems - Surgical History Cardiac Surgeries: Sugical HX of: Cardiac Catheterization Abdominal Surgeries: Surgical HX of: Appendectomy, Cholecystectomy Reproductive Surgeries: Surgical HX of;: Hysterectomy, Tubal Ligation Orthopedic Surgeries: Surgical HX of;: Orthopedic Surgery (right knee repair) - Family History Family History: Reports;: Family Cancer, Family Heart Disease, Family Hypertension, Family Stroke - Social History Smoking Status: Never smoker Frequency of Alcohol Use: None Type of Drug Use: None Marital Status: Lives With:: Spouse Functional capacity: independent ambulation - Constitutional Constitutional: Present: headache(s), weakness. Absent: chills, frequent falls - EENT Eyes: Absent: blurry vision, loss of vision Ears: Absent: decreased hearing, ear pain Nose, mouth and throat: Present: headache(s). Absent: neck pain - Cardiovascular Cardiovascular: Present: diaphoresis. Absent: chest pain at rest, chest pain with activity, dyspnea on exertion, edema, palpitations - Respiratory Respiratory: Absent: cough, dyspnea, hemoptysis, wheezing, pain on inspiration - Gastrointestinal Gastrointestinal: Present: nausea, vomiting. Absent: abdominal pain, change in bowel habits, constipation, diarrhea - Genitourinary Genitourinary: Absent: difficulty urinating, dysuria, flank pain, hematuria - Musculoskeletal Musculoskeletal: Present: myalgias - Neurological Neurological: Present: headache(s), syncope. Absent: frequent falls, numbness, paresthesias - Psychiatric Psychiatric: Absent: anxiety, depression - Endocrine Endocrine: Absent: cold intolerance, heat intolerance - Hematologic/Lymphatic Hematologic/Lymphatic: Present: easy bleeding, easy bruising Exam - Constitutional Vitals: Period Temp Pulse Resp BP Sys/Jauregui Pulse Ox Last 24 Hr 99.7 F-99.7 F 68-77 16-18 123-151/64-97 96-100 Exam: General appearance: normal weight, no acute distress - Head Head exam: Present: normocephalic, atraumatic - Eye Eye exam: Present: EOMI. Absent: conjunctival injection, nystagmus Pupils: Present: JOVANNI, normal accommodation - ENT ENT exam: Present: normal exam, normal external ear exam - Neck Neck exam: Present: normal inspection. Absent: lymphadenopathy, tenderness, thyromegaly - Respiratory Respiratory exam: Present: clear to auscultation bilaterally. Absent: rales, rhonchi, wheezes - Cardiovascular Cardiovascular exam: Present: regular rate and rhythm. Absent: carotid bruit, gallop, rubs - GI/Abdominal GI/Abdominal exam: Present: normal bowel sounds. Absent: ascites, distended, mass - Extremities Exam Extremities exam: Present: normal inspection, normal capillary refill. Absent: edema - Back Exam Back exam: Absent: CVA tenderness (L), CVA tenderness (R) - Neurological Exam Neurological exam: Present: alert, oriented X3, reflexes normal - Psychiatric Psychiatric exam: Present: normal affect, normal mood - Skin Skin exam: Present: normal color, warm, dry Results - Labs CBC & BMP: 10/15/16 11:56 10/15/16 11:56 Lab Results: I have reviewed the past 24 hour labs - EKG EKG results: interpreted by NANCIE, sinus rhythm - Diagnostic Findings Procedure: Chest x-ray: image reviewed by me, report reviewed by me ( Unremarkable), CT - chest: image reviewed by me, report reviewed by me (Mild patchy groundglass opacities demonstrated within the perihilar right upper lobe suspicious for asymmetric pulmonary edema or infectious/inflammatory process), CT: image reviewed by me, report reviewed by me (Head: Small left mastoid effusion; cervical spine: Unremarkable) <Jemma Rain - Last Filed: 10/15/16 16:56> Assessment and Plan (1) Syncope Status: Acute Assessment and plan: Most likely due to dehydration, blood pressure medicines, and infection, gently rehydrate with normal saline. Repeat orthostatics in a.m. Current Visit: Yes (2) Pneumonia Status: Acute Assessment and plan: Elevated white count complying with the chest CT findings will place on cefepime for pneumonia. Current Visit: Yes (3) Cardiomyopathy Status: Acute Assessment and plan: Repeat echo planned in a.m., echocardiogram from September 11, 2015 showed an EF of 55% with moderate left ventricular hypertrophy Current Visit: Yes (4) Mastoiditis Status: Acute Current Visit: Yes (5) AICD (automatic cardioverter/defibrillator) present Status: Chronic Current Visit: Yes (6) Sleep apnea Status: Chronic Assessment and plan: Sleep study on September 18, 2016 shows sleep-related hypoxemia, recommend oxygenation Current Visit: No Qualifiers: Sleep apnea type: obstructive Qualified Code(s): G47.33 - Obstructive sleep apnea (adult) (pediatric) History of Present Illness History of present illness: Ms. Owens is a 66 year old female seen and examined. Agree with documentation above. Due to her elevated WBCs and chest CT showing changes suggestive of pneumonia combined with the low blood pressure of 104 systolic that I saw in the emergency room and dehydration on her electrolytes and in her UA due to Lasix. She most likely has enough evidence of why she passed out. Exam - Constitutional Vitals: Period Temp Pulse Resp BP Sys/Jauregui Pulse Ox Last 24 Hr 99.7 F-99.7 F 67-77 16-18 114-151/61-97 96-100 Exam: I agree with above Results - Labs CBC & BMP: 10/15/16 11:56 10/15/16 11:56
[2016-10-15] MEDS: SODIUM CHLORIDE 0.9% 1,000 ML IV SCH (17:26)
[2016-10-15] MEDS: CEFEPIME 1,000 MG in SODIUM CHLORIDE 0.9% 100 ML IV SCH (18:12)
--- NOTE | 2016-10-15 19:31 | ECHO Report ---
Vanessa Owens Exam Date: 10/15/2016 14:59 Referring Physician: Technologist: Pattie Jorge RDCS Age: 66 Ht (in): 64 Wt (lb): 160 Gender: F Exam Location: [facility] Echo Indications: Syncope and collapse, Essential (primary) hypertension, Shortness of breath, Presence of automatic (implantable) cardiac defibrillator BP: 151 / 97 HR: 62 Rhythm: Sinus Technical Quality: IMPRESSIONS Normal LV systolic function, ejection fraction 50%. Grade 1/4 diastolic dysfunction. Trace mitral regurgitation. Mild tricuspid and aortic regurgitation. There are right-sided electronic leads consistent with pacemaker or defibrillator. MEASUREMENTS (Male / Female) Normal Values 2D ECHO LV Diastolic Diameter PLAX 5.2 cm 4.2 - 5.9 / 3.9 - 5.3 cm LV Systolic Diameter PLAX 3.8 cm LV Fractional Shortening PLAX 27.2 % IVS Diastolic Thickness 0.9 cm 0.6 - 1.0 / 0.6 - 0.9 cm LVPW Diastolic Thickness 0.9 cm 0.6 - 1.0 / 0.6 - 0.9 cm RV Internal Dim ED PLAX 3.2 cm Aortic Root Diameter 3.8 cm LA Systolic Diameter LX 2.9 cm 3.0 - 4.0 / 2.7 - 3.8 cm DOPPLER TR Peak Velocity 280.0 cm/s TR Peak Gradient 31.4 mmHg FINDINGS Left Ventricle Normal left ventricular cavity size. Normal left ventricular wall thickness. Left ventricular ejection fraction is estimated at 50%. Right Ventricle The right ventricle is normal in size and function. Right Atrium The right atrium is normal in size. Left Atrium The left atrium is normal in size. Mitral Valve Morphologically normal mitral valve. Trace mitral valve regurgitation. Aortic Valve Trileaflet aortic valve. Trace to mild aortic valve regurgitation. Tricuspid Valve Morphologically normal tricuspid valve. Trace to mild tricuspid valve regurgitation. Tricuspid regurgitation velocities suggest a PAP of 41 mmHg. Pulmonic Valve Morphologically normal pulmonic valve without significant stenosis. There is no pulmonic regurgitation. Pericardium Normal pericardium without effusion. Aorta Normal ascending aorta dimension. Jenn Villatoro MD (Electronically Signed) Final Date: 15 October 2016 19:04
[2016-10-15] MEDS ORDERED: AMITRIPTYLINE 25 MG TABLET PO SCH (21:00)
[2016-10-15] MEDS: PREGABALIN 75 MG CAPSULE PO SCH (21:44)
[2016-10-15] MEDS: APIXABAN 5 MG TABLET PO SCH (21:44)
[2016-10-15] MEDS: AMIODARONE 200 MG TABLET PO SCH (21:45)
[2016-10-15] MEDS: PRAVASTATIN 20 MG TABLET PO SCH (21:45)
[2016-10-15] MEDS: ALLOPURINOL 100 MG TABLET PO SCH (21:45)
[2016-10-15 23:23] LABS: Troponin I Only < 0.015 NG/ML (0.00-0.045)
[2016-10-16] MEDS: CEFEPIME 1,000 MG in SODIUM CHLORIDE 0.9% 100 ML IV SCH ×3 (03:33→16:51)
[2016-10-16 07:43] LABS: Basophils % 0.2 % (0.0-0.8); Eosinophils # 0.2 10*3/uL (0.0-0.87); Eosinophils % 2.3 % (0.00-10.9); Hematocrit 27.9 VOL% (35.7-47.0); Hemoglobin 9.4 GM/DL (12.0-16.0); Immature Granulocytes % 1.1 %; Immature Granulocytes Absolute 0.09 #; Lymphocytes % 24.3 % (21.3-54.2); Mean Corpuscular HGB Conc 33.7 GM/DL (32-36); Mean Corpuscular Hemoglobin 32 PG (27-34); Mean Corpuscular Volume 94.6 FL (87-102); Mean Platelet Volume 11.1 FL (9.6-12.0); Monocytes # 0.7 10*3/uL (0.11-0.8); Neutrophils # 5.4 10*3/uL (1.4-7.4); Neutrophils % 64.1 % (38.7-73.9); Platelet Count 201 T/CUMM (130-400); Red Blood Count 2.95 MC/CUMM (3.8-5.5); Red Cell Distribution Width 15.4 % (9.3-17.3); White Blood Count 8.4 T/CUMM (4-12)
--- NOTE | 2016-10-16 07:54 | EKG Report ---
Stationary ECG Study [facility] Test Date: 10/16/2016 4:27:16 AM Pat Name: CASTILLO RAMÍREZ Department: Room: 282 Gender: F Spiral Weaver: Marlo : 1950 Requested by: Francesca Gamboa Order Number: [id number] Reading MD: ISAURO THOMSON Intervals [place] Rate: 67 P: 185 OR: 210 QRS: 220 QRSD: 108 T: 229 QT: 437 QTc: 452 Interpretive Statements SINUS RHYTHM WITH FIRST DEGREE AV BLOCK WITH OCCASIONAL ECTOPIC PREMATURE COMPLEXES INCOMPLETE LEFT BUNDLE BRANCH BLOCK POSSIBLE RIGHT VENTRICULAR HYPERTROPHY ABNORMALITY, POSSIBLE INFERIOR ISCHEMIA Electronically Signed On 10-18-16 18:39:46 CDT by ISAURO THOMSON [email or web address]
--- NOTE | 2016-10-16 07:55 | EKG Report ---
Stationary ECG Study [facility] Test Date: 10/15/2016 11:41:19 PM Pat Name: CASTILLO RAMÍREZ Department: Room: 282 Gender: F Kiss Mixer: Marlo : 1950 Requested by: Jemma Romo Order Number: [id number] Reading MD: ISAURO THOMSON Intervals [place] Rate: 66 P: 4 IN: 209 QRS: 83 QRSD: 114 T: 110 QT: 433 QTc: 446 Interpretive Statements SINUS RHYTHM LOW QRS VOLTAGE IN CHEST LEADS INCOMPLETE LEFT BUNDLE BRANCH BLOCK ANTEROLATERAL ISCHEMIA Electronically Signed On 10-18-16 18:38:26 CDT by ISAURO THOMSON [email or web address]
[2016-10-16 08:13] LABS: Calcium 8.4 MG/DL (8.5-10.1); Magnesium 2.1 MG/DL (1.8-2.4); Osmolality,Calculated 281.5 MOS/KG (273-304); Potassium 4.4 MMOL/L (3.5-5.1)
[2016-10-16 08:24] LABS: Troponin I Only < 0.015 NG/ML (0.00-0.045)
[2016-10-16] MEDS: SODIUM CHLORIDE 0.9% 1,000 ML IV SCH ×2 (08:25→22:02)
[2016-10-16] MEDS: CHOLECALCIFEROL 1,000 UNIT TABLET PO SCH (08:26)
[2016-10-16] MEDS: FOLIC ACID 1 MG TABLET PO SCH (08:27)
[2016-10-16] MEDS: PREGABALIN 75 MG CAPSULE PO SCH ×2 (08:27→20:57)
[2016-10-16] MEDS: MAGNESIUM OXIDE 400 MG TABLET PO SCH (08:27)
[2016-10-16] MEDS: ALLOPURINOL 100 MG TABLET PO SCH ×2 (08:28→20:57)
[2016-10-16] MEDS: APIXABAN 5 MG TABLET PO SCH ×2 (08:28→20:57)
[2016-10-16] MEDS: AMIODARONE 200 MG TABLET PO SCH (08:28)
[2016-10-16] MEDS ORDERED: FUROSEMIDE 20 MG TABLET PO SCH (09:00)
[2016-10-16] MEDS ORDERED: VALSARTAN 160 MG TABLET PO SCH (09:00)
--- NOTE | 2016-10-16 11:43 | Cardiology Progress Note ---
<Francesca Gamboa - Last Filed: 10/16/16 11:40> Assessment and Plan (1) Syncope Status: Acute Assessment and plan: See plan of care listed below. Current Visit: Yes (2) Mastoiditis Status: Acute Assessment and plan: See plan of care listed below. Current Visit: Yes (3) Leukocytosis Status: Acute Assessment and plan: See plan of care listed below. Current Visit: Yes (4) History of atrial fibrillation Status: Chronic Assessment and plan: See plan of care listed below. Current Visit: Yes (5) Hypertension Status: Chronic Assessment and plan: See plan of care listed below. Current Visit: Yes (6) AICD (automatic cardioverter/defibrillator) present Status: Chronic Assessment and plan: See plan of care listed below. Current Visit: Yes (7) High risk medication use Status: Chronic Assessment and plan: See plan of care listed below. Current Visit: No (8) Hyperlipidemia Status: Chronic Assessment and plan: See plan of care listed below. Current Visit: No (9) Sleep apnea Status: Chronic Assessment and plan: See plan of care listed below. Current Visit: No Qualifiers: Sleep apnea type: obstructive Qualified Code(s): G47.33 - Obstructive sleep apnea (adult) (pediatric) (10) Pneumonia Status: Acute Assessment and plan: See plan of care listed below. Current Visit: Yes Cardiology - PN: Subj Interval history: [facility]: DR. MCCLURE SUMMARY Ms. Owens, 66WF, is routinely followed by Dr. Mcclure. She was last seen in cardiology clinic June 19, 2016. Risk factors include: Hypertension, dyslipidemia, TIA. History of nonischemic cardiomyopathy requiring ICD approximately 10 years ago (EF now 50% per echo May,). History of sleep apnea. She was recently diagnosed with atrial fibrillation when discovered to have a TIA. [place] at that time, started on Eliquis. Stress test September 11, 2015 revealed no reversible ischemia, low risk. She was just admitted to the hospital August 2016 for atypical chest pain. She ruled out for [place]. Cardiac biomarkers negative 3. She was discovered to be in A. fib RVR with paroxysms of normal sinus rhythm. She was converted with IV amiodarone and subsequently started on p.o. She has remained in normal sinus rhythm since that time and denies any heart racing/palpitations since being chemically cardioverted. OCTOBER 15, 2016 Patient was seen and examined on the telemetry unit. She appears to be doing remarkably better today. She denies complaints of chest pain, heaviness and tightness. Cardiac biomarkers have been negative this hospitalization. AICD was interrogated and did not reveal any evidence of cardiac dysrhythmias. Telemetry has been free of ectopy and arrhythmias. She reports that she has had no further syncopal episodes his hospitalization. Her blood pressures have been reviewed and she has been borderline hypotensive. This is most likely the culprit of patient's syncopal episode. Antihypertensives are on hold. Echocardiogram yesterday revealed normal LV systolic function ejection fraction of 50%. Grade 1 out of 4 diastolic dysfunction. Trace MR. Mild TR. leukocytosis resolved. Afebrile. Patient is being treated empirically for pneumonia as well as mastoiditis. We will continue to monitor patient's blood pressure and adjust medication regimen as needed. I will further discuss with Dr. Mcclure and await his additional recommendations. ASSESSMENT/PLAN 1. SYNCOPE - ICD was interrogated in the emergency department which did not reveal any evidence of cardiac dysrhythmias. Telemetry has been reviewed and does not reveal any overt dysrhythmias. Blood pressures have been reviewed and patient appears to have been borderline hypotensive. This is most likely the culprit of patient's syncopal episode. Antihypertensives are on hold at this time. We will continue to hold these and monitor blood pressure. Will make further adjustments as needed. No significant change in blood pressure when patient changes from supine to standing position. Continue to monitor orthostatic vital signs. 2. HISTORY OF NONISCHEMIC CARDIOMYOPATHY - No overt signs of heart failure this hospitalization. Patient does have history of idiopathic cardiomyopathy. She reports that she had a heart catheterization several years ago which did not reveal any obstructive disease. Echocardiogram revealed ejection fraction 50% with grade 1 out of 4 diastolic dysfunction. Unable to tolerate beta- blockade as her blood pressure will not allow. Continue ARB. 3. MASTOIDITIS - Management per hospital medicine. 4. LEUKOCYTOSIS WITH LEFT SHIFT - Resolved. Continue antibiotics. 5. STATUS POST AICD - This is been interrogated the emergency department does not reveal any evidence of cardiac dysrhythmias. 6. HISTORY OF QASIM - Continue current plan of care. 7. HISTORY OF ATRIAL FIBRILLATION - History of paroxysmal atrial fibrillation. Diagnosed this past year. Continue Eliquis. ICD has been interrogated no episodes of atrial fibrillation noted. Continue amiodarone. Will monitor patient on the telemetry unit for recurrent atrial fib. 8. HYPERTENSION -patient has been borderline hypotensive at times. No significant change in blood pressure when patient changes from supine to standing. Blood pressure medicines are on hold at this time. 9. HYPERLIPIDEMIA - Continue lipid-lowering agent. Check lipid panel in the morning. 10.ANEMIA - Will order anemia profile. Daily CBC. No overt bleeding. Will check stool for occult blood 11. PNEUMONIA - CT chest reveals mild patchy groundglass opacities demonstrated within the perihilar right upper lobe suspicious for asymmetric pulmonary edema or infectious/inflammatory process. Continue antibiotics. Exam (Progress Note) - Constitutional Vitals: Period Temp Pulse Resp BP Sys/Jauregui Pulse Ox Last 24 Hr 97.4 F-99.9 F 60-72 16-20 88-123/51-64 96-99 Exam: General: Appears well with no apparent distress. Pleasant and cooperative. Appears comfortable. HEENT: PERRL, normocephalic, atraumatic. Mucous membranes moist. No jaundice noted. Conjunctiva moist and clear, sclerae anicteric Neck: No JVD/HJR, no thyromegaly or lymphadenopathy noted. No carotid bruit appreciated Cardiac: Regular rate and rhythm. No murmur rub or gallop. Lungs: Clear to auscultation without accessory muscle use to assist the respiratory pattern. Abdomen: Soft, bowel sounds normoactive. Nontender and nondistended. No abdominal bruit or thrill noted. No masses noted. Extremities: No clubbing, cyanosis noted. No edema noted. Upper extremity pulses 2+. Lower extremity pulses 2+. Capillary refill less than 3 seconds. Skin: No unusual lesions or rashes. No skin breakdown appreciated. Neuro: Awake, alert and oriented 3. Moves all extremities well without hemiparesis or paralysis. No essential tremor is appreciated. Result/EKG - Labs CBC & BMP: 10/16/16 07:09 10/16/16 07:09 Lab Results: I have reviewed the past 24 hour labs Labs: Laboratory Results - last 24 hr 10/15/16 10/15/16 10/15/16 11:53 11:56 11:56 WBC 14.0 H RBC 3.27 L Hgb 10.3 L Hct 30.5 L MCV 93.3 MCH 32 MCHC 33.8 RDW 15.2 Plt Count 215 MPV 11.0 Neut % (Auto) 81.2 H Lymph % (Auto) 10.2 L [place] % (Auto) 5.9 Eos % (Auto) 1.3 Baso % (Auto) 0.3 Neut # (Auto) 11.4 H Lymph # (Auto) 1.4 [place] # (Auto) 0.8 Eos # (Auto) 0.2 Baso # (Auto) 0.0 Immature Gran % 1.1 Nucleated RBC % 0.0 Immature Gran # 0.15 Nucleated RBCs # 0.00 Immature Plt Fraction 0.0 INR 1.0 PT Patient/Control Mix 10.7 Sodium Potassium Chloride Carbon Dioxide Anion Gap BUN Creatinine GFR Calculation BUN/Creatinine Ratio Glucose POC Glucose 199 H Calculated Osmolality Calcium Magnesium Total Bilirubin AST ALT Alkaline Phosphatase Total Creatine Kinase CK-MB (CK-2) Troponin I B-Natriuretic Peptide Total Protein Albumin Globulin Albumin/Globulin Ratio Urine Color Urine Appearance Urine pH Ur Specific [place] Urine Protein Urine Glucose (UA) Urine Ketones Urine Blood Urine Nitrate Urine Bilirubin Urine Urobilinogen Urine Leukocytes Urine RBC Urine WBC Ur Squamous Epith Cells Urine Bacteria Hyaline Casts Urine Mucus Ur Culture Indicated? Urine Opiates Screen Ur Barbiturates Screen Ur Phencyclidine Scrn U Amphetamine/Methamph U Benzodiazepines Scrn U Cocaine Metab Screen U Cannabinoids Screen 10/15/16 10/15/16 10/15/16 11:56 11:56 12:29 WBC RBC Hgb Hct MCV MCH MCHC RDW Plt Count MPV Neut % (Auto) Lymph % (Auto) [place] % (Auto) Eos % (Auto) Baso % (Auto) Neut # (Auto) Lymph # (Auto) [place] # (Auto) Eos # (Auto) Baso # (Auto) Immature Gran % Nucleated RBC % Immature Gran # Nucleated RBCs # Immature Plt Fraction INR PT Patient/Control Mix Sodium 136 Potassium 4.3 Chloride 100 Carbon Dioxide 28 Anion Gap 12.3 BUN 26 H Creatinine 1.60 H GFR Calculation 34 BUN/Creatinine Ratio 16.00 Glucose 180 H POC Glucose Calculated Osmolality 281.0 Calcium 8.9 Magnesium Total Bilirubin < 0.39 AST 31 ALT 36 Alkaline Phosphatase 57 Total Creatine Kinase CK-MB (CK-2) Troponin I < 0.015 B-Natriuretic Peptide 15 Total Protein 7.0 Albumin 3.6 Globulin 3.4 Albumin/Globulin Ratio 1.0 L Urine Color Yellow Urine Appearance Clear Urine pH 6.0 Ur Specific [place] 1.013 Urine Protein Negative Urine Glucose (UA) 50 Urine Ketones Negative Urine Blood Negative Urine Nitrate Negative Urine Bilirubin Negative Urine Urobilinogen < 2.0 H Urine Leukocytes Negative Urine RBC <1 Urine WBC 1 Ur Squamous Epith Cells Occasional Urine Bacteria Occasional Hyaline Casts 12 Urine Mucus Occasional Ur Culture Indicated? Not indicated Urine Opiates Screen Ur Barbiturates Screen Ur Phencyclidine Scrn U Amphetamine/Methamph U Benzodiazepines Scrn U Cocaine Metab Screen U Cannabinoids Screen 10/15/16 10/15/16 10/15/16 12:29 16:09 18:47 WBC RBC Hgb Hct MCV MCH MCHC RDW Plt Count MPV Neut % (Auto) Lymph % (Auto) [place] % (Auto) Eos % (Auto) Baso % (Auto) Neut # (Auto) Lymph # (Auto) [place] # (Auto) Eos # (Auto) Baso # (Auto) Immature Gran % Nucleated RBC % Immature Gran # Nucleated RBCs # Immature Plt Fraction INR PT Patient/Control Mix Sodium Potassium Chloride Carbon Dioxide Anion Gap BUN Creatinine GFR Calculation BUN/Creatinine Ratio Glucose POC Glucose Calculated Osmolality Calcium Magnesium Total Bilirubin AST ALT Alkaline Phosphatase Total Creatine Kinase CK-MB (CK-2) Troponin I < 0.015 < 0.015 B-Natriuretic Peptide Total Protein Albumin Globulin Albumin/Globulin Ratio Urine Color Urine Appearance Urine pH Ur Specific [place] Urine Protein Urine Glucose (UA) Urine Ketones Urine Blood Urine Nitrate Urine Bilirubin Urine Urobilinogen Urine Leukocytes Urine RBC Urine WBC Ur Squamous Epith Cells Urine Bacteria Hyaline Casts Urine Mucus Ur Culture Indicated? Urine Opiates Screen Negative Ur Barbiturates Screen Negative Ur Phencyclidine Scrn Negative U Amphetamine/Methamph Negative U Benzodiazepines Scrn Negative U Cocaine Metab Screen Negative U Cannabinoids Screen Negative 10/15/16 10/15/16 10/16/16 22:45 22:45 07:09 WBC 8.4 D RBC 2.95 L Hgb 9.4 L Hct 27.9 L MCV 94.6 MCH 32 MCHC 33.7 RDW 15.4 Plt Count 201 MPV 11.1 Neut % (Auto) 64.1 Lymph % (Auto) 24.3 [place] % (Auto) 8.0 Eos % (Auto) 2.3 Baso % (Auto) 0.2 Neut # (Auto) 5.4 Lymph # (Auto) 2.0 [place] # (Auto) 0.7 Eos # (Auto) 0.2 Baso # (Auto) 0.0 Immature Gran % 1.1 Nucleated RBC % 0.0 Immature Gran # 0.09 Nucleated RBCs # 0.00 Immature Plt Fraction 0.0 INR PT Patient/Control Mix Sodium Potassium Chloride Carbon Dioxide Anion Gap BUN Creatinine GFR Calculation BUN/Creatinine Ratio Glucose POC Glucose Calculated Osmolality Calcium Magnesium Total Bilirubin AST ALT Alkaline Phosphatase Total Creatine Kinase 54 CK-MB (CK-2) < 1.0 Troponin I < 0.015 < 0.015 B-Natriuretic Peptide Total Protein Albumin Globulin Albumin/Globulin Ratio Urine Color Urine Appearance Urine pH Ur Specific [place] Urine Protein Urine Glucose (UA) Urine Ketones Urine Blood Urine Nitrate Urine Bilirubin Urine Urobilinogen Urine Leukocytes Urine RBC Urine WBC Ur Squamous Epith Cells Urine Bacteria Hyaline Casts Urine Mucus Ur Culture Indicated? Urine Opiates Screen Ur Barbiturates Screen Ur Phencyclidine Scrn U Amphetamine/Methamph U Benzodiazepines Scrn U Cocaine Metab Screen U Cannabinoids Screen 10/16/16 10/16/16 07:09 07:09 WBC RBC Hgb Hct MCV MCH MCHC RDW Plt Count MPV Neut % (Auto) Lymph % (Auto) [place] % (Auto) Eos % (Auto) Baso % (Auto) Neut # (Auto) Lymph # (Auto) [place] # (Auto) Eos # (Auto) Baso # (Auto) Immature Gran % Nucleated RBC % Immature Gran # Nucleated RBCs # Immature Plt Fraction INR PT Patient/Control Mix Sodium 139 Potassium 4.4 Chloride 105 Carbon Dioxide 27 Anion Gap 11.4 BUN 24 H Creatinine 1.30 H GFR Calculation 45 BUN/Creatinine Ratio 18.00 Glucose 124 H POC Glucose Calculated Osmolality 281.5 Calcium 8.4 L Magnesium 2.1 Total Bilirubin AST ALT Alkaline Phosphatase Total Creatine Kinase 50 CK-MB (CK-2) < 1.0 Troponin I < 0.015 B-Natriuretic Peptide Total Protein Albumin Globulin Albumin/Globulin Ratio Urine Color Urine Appearance Urine pH Ur Specific [place] Urine Protein Urine Glucose (UA) Urine Ketones Urine Blood Urine Nitrate Urine Bilirubin Urine Urobilinogen Urine Leukocytes Urine RBC Urine WBC Ur Squamous Epith Cells Urine Bacteria Hyaline Casts Urine Mucus Ur Culture Indicated? Urine Opiates Screen Ur Barbiturates Screen Ur Phencyclidine Scrn U Amphetamine/Methamph U Benzodiazepines Scrn U Cocaine Metab Screen U Cannabinoids Screen <Red Mcclure - Last Filed: 10/16/16 16:40> Cardiology - PN: Subj Interval history: Patient presents with a syncopal episode. I suspect that she was orthostatic and that was the etiology of her fainting spell. She does have what appears to be mastoiditis and is being treated for that. She has a history of paroxysmal atrial fibrillation and has been on amiodarone which we have stopped. I think the best approach would be to hold her amiodarone. Her CT scan shows patchy groundglass opacities which is concerning for amiodarone lung. I think it needs to be stopped and probably not restarted. We will continue adjusting meds. I have discussed in detail the particulars of this case and I have examined the patient and reviewed the patient's chart both current and old. I was directly involved in the patient's evaluation and management and I completely agree with Francesca Gamboa PRUNER regarding this patient's evaluation and treatment plan. Exam (Progress Note) - Constitutional Vitals: Period Temp Pulse Resp BP Sys/Jauregui Pulse Ox Last 24 Hr 97 F-99.9 F 60-72 16-20 88-112/50-60 94-98 Result/EKG - Labs CBC & BMP: 10/16/16 12:12 10/16/16 07:09 Labs: Laboratory Results - last 24 hr 10/15/16 10/15/16 10/15/16 16:09 18:47 22:45 WBC RBC Hgb Hct MCV MCH MCHC RDW Plt Count MPV Neut % (Auto) Lymph % (Auto) [place] % (Auto) Eos % (Auto) Baso % (Auto) Neut # (Auto) Lymph # (Auto) [place] # (Auto) Eos # (Auto) Baso # (Auto) Immature Gran % Nucleated RBC % Immature Gran # Nucleated RBCs # Immature Plt Fraction ESR W[place] Absolute Retic Percent Retic Retic Hgb Equivalent Sodium Potassium Chloride Carbon Dioxide Anion Gap BUN Creatinine GFR Calculation BUN/Creatinine Ratio Glucose Calculated Osmolality Calcium Magnesium Ferritin Total Creatine Kinase 54 CK-MB (CK-2) < 1.0 Troponin I < 0.015 < 0.015 < 0.015 Vitamin B12 Folate 10/15/16 10/16/16 10/16/16 22:45 07:09 07:09 WBC 8.4 D RBC 2.95 L Hgb 9.4 L Hct 27.9 L MCV 94.6 MCH 32 MCHC 33.7 RDW 15.4 Plt Count 201 MPV 11.1 Neut % (Auto) 64.1 Lymph % (Auto) 24.3 [place] % (Auto) 8.0 Eos % (Auto) 2.3 Baso % (Auto) 0.2 Neut # (Auto) 5.4 Lymph # (Auto) 2.0 [place] # (Auto) 0.7 Eos # (Auto) 0.2 Baso # (Auto) 0.0 Immature Gran % 1.1 Nucleated RBC % 0.0 Immature Gran # 0.09 Nucleated RBCs # 0.00 Immature Plt Fraction 0.0 ESR [place]gren Absolute Retic Percent Retic Retic Hgb Equivalent Sodium 139 Potassium 4.4 Chloride 105 Carbon Dioxide 27 Anion Gap 11.4 BUN 24 H Creatinine 1.30 H GFR Calculation 45 BUN/Creatinine Ratio 18.00 Glucose 124 H Calculated Osmolality 281.5 Calcium 8.4 L Magnesium 2.1 Ferritin Total Creatine Kinase CK-MB (CK-2) Troponin I < 0.015 Vitamin B12 Folate 10/16/16 10/16/16 10/16/16 07:09 12:12 12:12 WBC 6.9 RBC 2.87 L Hgb 9.1 L Hct 27.6 L MCV 96.2 MCH 32 MCHC 33.0 RDW 15.2 Plt Count 188 MPV 10.9 Neut % (Auto) 58.4 Lymph % (Auto) 29.1 [place] % (Auto) 8.7 Eos % (Auto) 2.5 Baso % (Auto) 0.3 Neut # (Auto) 4.0 Lymph # (Auto) 2.0 [place] # (Auto) 0.6 Eos # (Auto) 0.2 Baso # (Auto) 0.0 Immature Gran % 1.0 Nucleated RBC % 0.0 Immature Gran # 0.07 Nucleated RBCs # 0.00 Immature Plt Fraction 0.0 ESR Westergren 58 H Absolute Retic 0.1 Percent Retic 2.9 H Retic Hgb Equivalent 32.1 Sodium Potassium Chloride Carbon Dioxide Anion Gap BUN Creatinine GFR Calculation BUN/Creatinine Ratio Glucose Calculated Osmolality Calcium Magnesium Ferritin 35.2 Total Creatine Kinase 50 CK-MB (CK-2) < 1.0 Troponin I < 0.015 Vitamin B12 Folate 10/16/16 12:12 WBC RBC Hgb Hct MCV MCH MCHC RDW Plt Count MPV Neut % (Auto) Lymph % (Auto) [place] % (Auto) Eos % (Auto) Baso % (Auto) Neut # (Auto) Lymph # (Auto) [place] # (Auto) Eos # (Auto) Baso # (Auto) Immature Gran % Nucleated RBC % Immature Gran # Nucleated RBCs # Immature Plt Fraction ESR W[place]gren Absolute Retic Percent Retic Retic Hgb Equivalent Sodium Potassium Chloride Carbon Dioxide Anion Gap BUN Creatinine GFR Calculation BUN/Creatinine Ratio Glucose Calculated Osmolality Calcium Magnesium Ferritin Total Creatine Kinase CK-MB (CK-2) Troponin I Vitamin B12 466 Folate > 24.0 H
[2016-10-16 12:34] LABS: Basophils % 0.3 % (0.0-0.8); Eosinophils # 0.2 10*3/uL (0.0-0.87); Eosinophils % 2.5 % (0.00-10.9); Hematocrit 27.6 VOL% (35.7-47.0); Hemoglobin 9.1 GM/DL (12.0-16.0); Immature Granulocytes Absolute 0.07 #; Lymphocytes % 29.1 % (21.3-54.2); Mean Corpuscular Hemoglobin 32 PG (27-34); Mean Corpuscular Volume 96.2 FL (87-102); Mean Platelet Volume 10.9 FL (9.6-12.0); Monocytes # 0.6 10*3/uL (0.11-0.8); Monocytes % 8.7 % (1.7-12.7); Neutrophils % 58.4 % (38.7-73.9); Platelet Count 188 T/CUMM (130-400); Red Blood Count 2.87 MC/CUMM (3.8-5.5); Red Cell Distribution Width 15.2 % (9.3-17.3); White Blood Count 6.9 T/CUMM (4-12)
[2016-10-16 13:11] LABS: Folate > 24.0 NG/ML (5.4-24.0); Vitamin B12 466 PG/ML (211-911)
[2016-10-16 13:40] LABS: Sedimentation Rate-Westergren 58 MM/HR (0-30)
--- NOTE | 2016-10-16 14:05 | Hospitalist Progress Note ---
Assessment and Plan (1) Syncope Status: Acute Assessment and plan: Most likely due to dehydration and low blood pressure medicines Current Visit: Yes (2) Pneumonia Status: Acute Assessment and plan: cont cefepime Current Visit: Yes (3) Cardiomyopathy Status: Acute Assessment and plan: Repeat echo ef 50% Current Visit: Yes (4) Mastoiditis Status: Acute Assessment and plan: cont cefepime Current Visit: Yes (5) AICD (automatic cardioverter/defibrillator) present Status: Chronic Current Visit: Yes (6) Sleep apnea Status: Chronic Assessment and plan: 09/18/16 sleep related hypoxia cont oxygen. Current Visit: No Qualifiers: Sleep apnea type: obstructive Qualified Code(s): G47.33 - Obstructive sleep apnea (adult) (pediatric) Hospitalist: Subjective Interval history: blood pressure low today. hold amiodarone this morning. Exam - Constitutional Vitals: Period Temp Pulse Resp BP Sys/Jauregui Pulse Ox Last 24 Hr 97 F-99.9 F 60-72 16-20 88-123/50-64 94-99 Exam: Heart Rate-[RRR] Lungs-[CTAB] GI-[+bs soft, NT] Ext-[no edema] Neuro [Motor 5/5], [alert and oriented times 3] psych [normal mood and affect] General [no acute distress] Results - Labs CBC & BMP: 10/16/16 12:12 10/16/16 07:09 Lab Results: I have reviewed the past 24 hour labs - Diagnostic Findings Procedure: Ultrasound: report reviewed by me (ef 50%, grade 1/4 diastolic dysfunction, pap 41)
[2016-10-16] MEDS: PRAVASTATIN 20 MG TABLET PO SCH (20:57)
[2016-10-17] MEDS: CEFEPIME 1,000 MG in SODIUM CHLORIDE 0.9% 100 ML IV SCH ×3 (00:51→16:38)
[2016-10-17 05:51] LABS: Basophils % 0.7 % (0.0-0.8); Eosinophils # 0.2 10*3/uL (0.0-0.87); Eosinophils % 4.1 % (0.00-10.9); Hematocrit 27.3 VOL% (35.7-47.0); Hemoglobin 9.1 GM/DL (12.0-16.0); Immature Granulocytes % 1.5 %; Immature Granulocytes Absolute 0.09 #; Lymphocytes # 1.7 10*3/uL (1.4-4.0); Lymphocytes % 29.5 % (21.3-54.2); Mean Corpuscular HGB Conc 33.3 GM/DL (32-36); Mean Corpuscular Hemoglobin 32 PG (27-34); Mean Corpuscular Volume 94.5 FL (87-102); Mean Platelet Volume 11.1 FL (9.6-12.0); Monocytes # 0.6 10*3/uL (0.11-0.8); Monocytes % 10.3 % (1.7-12.7); Neutrophils # 3.2 10*3/uL (1.4-7.4); Neutrophils % 53.9 % (38.7-73.9); Platelet Count 193 T/CUMM (130-400); Red Blood Count 2.89 MC/CUMM (3.8-5.5); White Blood Count 5.9 T/CUMM (4-12)
[2016-10-17 06:21] LABS: Risk Ratio 6.65; VLDL CHOLESTEROL 45.2 MG/DL
[2016-10-17 06:22] LABS: Calcium 8.2 MG/DL (8.5-10.1); Magnesium 2.1 MG/DL (1.8-2.4); Osmolality,Calculated 287.1 MOS/KG (273-304); Potassium 4.4 MMOL/L (3.5-5.1)
[2016-10-17] MEDS: CHOLECALCIFEROL 1,000 UNIT TABLET PO SCH (09:18)
[2016-10-17] MEDS: FOLIC ACID 1 MG TABLET PO SCH (09:18)
[2016-10-17] MEDS: APIXABAN 5 MG TABLET PO SCH ×2 (09:18→21:11)
[2016-10-17] MEDS: PREGABALIN 75 MG CAPSULE PO SCH ×2 (09:19→21:11)
[2016-10-17] MEDS: ALLOPURINOL 100 MG TABLET PO SCH ×2 (09:19→21:10)
[2016-10-17] MEDS: MAGNESIUM OXIDE 400 MG TABLET PO SCH (09:20)
--- NOTE | 2016-10-17 11:13 | Cardiology Progress Note ---
Assessment and Plan (1) Abnormal chest x-ray Status: Acute Assessment and plan: Her x-rays suspicious for amiodarone lung and we will repeat it in the morning. She feels better off of the amiodarone currently. Current Visit: Yes (2) Syncope Status: Acute Current Visit: Yes (3) AICD (automatic cardioverter/defibrillator) present Status: Chronic Current Visit: Yes (4) History of atrial fibrillation Status: Chronic Current Visit: Yes (5) High risk medication use Status: Chronic Current Visit: No Cardiology - PN: Subj Interval history: This is a patient that presented with a syncopal episode. She has a history of paroxysmal atrial fibrillation and has a history of TIAs. 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 We have stopped her amiodarone and we are going to repeat a chest x-ray in the morning. We are holding her antihypertensive medications as I think it likely was related to either orthostasis or hypotension secondary to medications. She feels better and we are continuing management. Exam (Progress Note) - Constitutional Vitals: Period Temp Pulse Resp BP Sys/Jauregui Pulse Ox Last 24 Hr 97 F-99.5 F 61-69 16-20 107-129/50-68 94-97 Exam: General:no acute distress. alert and oriented, mood and affect are normal HEENT: no new lesions, sclerae are clear, mouth and pharynx benign Neck: supple, trachea midline, no JVD noted Lungs: no rales ronchi or wheeze is noted. pt comfortable without accesory muscle use to assist with breathing CV: RRR no murmur rub or gallop is noted. Abd: soft and nontender, BSNA, no masses. Ext: no cyanosis, clubbing or edema Neuro: grossly intact without focal neurologic deficit. Result/EKG - Labs CBC & BMP: 10/17/16 05:29 10/17/16 05:29 Labs: Laboratory Results - last 24 hr 10/16/16 10/16/16 10/16/16 12:12 12:12 12:12 WBC 6.9 RBC 2.87 L Hgb 9.1 L Hct 27.6 L MCV 96.2 MCH 32 MCHC 33.0 RDW 15.2 Plt Count 188 MPV 10.9 Neut % (Auto) 58.4 Lymph % (Auto) 29.1 [place] % (Auto) 8.7 Eos % (Auto) 2.5 Baso % (Auto) 0.3 Neut # (Auto) 4.0 Lymph # (Auto) 2.0 [place] # (Auto) 0.6 Eos # (Auto) 0.2 Baso # (Auto) 0.0 Immature Gran % 1.0 Nucleated RBC % 0.0 Immature Gran # 0.07 Nucleated RBCs # 0.00 Immature Plt Fraction 0.0 ESR Westergren 58 H Absolute Retic 0.1 Percent Retic 2.9 H Retic Hgb Equivalent 32.1 Sodium Potassium Chloride Carbon Dioxide Anion Gap BUN Creatinine GFR Calculation BUN/Creatinine Ratio Glucose Calculated Osmolality Calcium Magnesium Ferritin 35.2 Triglycerides Cholesterol LDL Cholesterol VLDL Cholesterol HDL Cholesterol Heart Disease Risk Ratio Vitamin B12 466 Folate > 24.0 H 10/17/16 10/17/16 10/17/16 05:29 05:29 05:29 WBC 5.9 RBC 2.89 L Hgb 9.1 L Hct 27.3 L MCV 94.5 MCH 32 MCHC 33.3 RDW 15.0 Plt Count 193 MPV 11.1 Neut % (Auto) 53.9 Lymph % (Auto) 29.5 [place] % (Auto) 10.3 Eos % (Auto) 4.1 Baso % (Auto) 0.7 Neut # (Auto) 3.2 Lymph # (Auto) 1.7 [place] # (Auto) 0.6 Eos # (Auto) 0.2 Baso # (Auto) 0.0 Immature Gran % 1.5 Nucleated RBC % 0.0 Immature Gran # 0.09 Nucleated RBCs # 0.00 Immature Plt Fraction 0.0 ESR W[place] Absolute Retic Percent Retic Retic Hgb Equivalent Sodium 142 Potassium 4.4 Chloride 110 H Carbon Dioxide 25 Anion Gap 11.4 BUN 21 H Creatinine 1.20 H GFR Calculation 50 BUN/Creatinine Ratio 17.00 Glucose 131 H Calculated Osmolality 287.1 Calcium 8.2 L Magnesium 2.1 Ferritin Triglycerides 226 H Cholesterol 226 H LDL Cholesterol 151.0 VLDL Cholesterol 45.2 HDL Cholesterol 34 L Heart Disease Risk Ratio 6.65 Vitamin B12 Folate
--- NOTE | 2016-10-17 14:50 | Hospitalist Progress Note ---
Assessment and Plan (1) Syncope Status: Acute Assessment and plan: resolved, HL IVF Current Visit: Yes (2) Pneumonia Status: Acute Assessment and plan: cont cefepime for now, repeat cxr in am, may be due to amiodarone Current Visit: Yes (3) Cardiomyopathy Status: Acute Assessment and plan: Repeat echo ef 50% Current Visit: Yes (4) Mastoiditis Status: Acute Assessment and plan: cont cefepime Current Visit: Yes (5) AICD (automatic cardioverter/defibrillator) present Status: Chronic Current Visit: Yes (6) Sleep apnea Status: Chronic Assessment and plan: 09/18/16 sleep related hypoxia cont oxygen. Current Visit: No Qualifiers: Sleep apnea type: obstructive Qualified Code(s): G47.33 - Obstructive sleep apnea (adult) (pediatric) Hospitalist: Subjective Interval history: Patient feeling much better today. Continue IV antibiotics for for now. Possible discharge in the morning. According to Dr. Mcclure's notes suspicious that the amiodarone may have caused some lung problems. Exam - Constitutional Vitals: Period Temp Pulse Resp BP Sys/Jauregui Pulse Ox Last 24 Hr 97 F-99.5 F 61-72 16-20 107-162/56-74 95-99 Exam: Heart Rate-[RRR] Lungs-[CTAB] GI-[+bs soft, NT] Ext-[no edema] Neuro [Motor 5/5], [alert and oriented times 3] psych [normal mood and affect] General [no acute distress] Results - Labs CBC & BMP: 10/17/16 05:29 10/17/16 05:29 Lab Results: I have reviewed the past 24 hour labs
[2016-10-17] MEDS ORDERED: ONDANSETRON 4 MG/2 ML VIAL IV PRN (16:27)
[2016-10-17] MEDS: PANTOPRAZOLE 40 MG TABLET PO SCH ×2 (16:38→21:11)
[2016-10-17] MEDS: PRAVASTATIN 20 MG TABLET PO SCH (21:11)
[2016-10-18] MEDS: CEFEPIME 1,000 MG in SODIUM CHLORIDE 0.9% 100 ML IV SCH ×3 (00:16→10:36)
[2016-10-18 05:18] LABS: Basophils % 0.7 % (0.0-0.8); Eosinophils # 0.2 10*3/uL (0.0-0.87); Hematocrit 27.6 VOL% (35.7-47.0); Hemoglobin 9.1 GM/DL (12.0-16.0); Immature Granulocytes % 1.2 %; Immature Granulocytes Absolute 0.07 #; Lymphocytes # 2.1 10*3/uL (1.4-4.0); Lymphocytes % 35.9 % (21.3-54.2); Mean Corpuscular Hemoglobin 31 PG (27-34); Mean Corpuscular Volume 94.8 FL (87-102); Mean Platelet Volume 11.2 FL (9.6-12.0); Monocytes # 0.6 10*3/uL (0.11-0.8); Monocytes % 9.8 % (1.7-12.7); Neutrophils # 2.9 10*3/uL (1.4-7.4); Neutrophils % 48.4 % (38.7-73.9); Platelet Count 190 T/CUMM (130-400); Red Blood Count 2.91 MC/CUMM (3.8-5.5); White Blood Count 5.9 T/CUMM (4-12)
[2016-10-18 05:45] LABS: Calcium 8.4 MG/DL (8.5-10.1); Magnesium 2.1 MG/DL (1.8-2.4); Osmolality,Calculated 285.1 MOS/KG (273-304); Potassium 4.6 MMOL/L (3.5-5.1)
[2016-10-18 08:15] VITALS: BP 118/62
--- NOTE | 2016-10-18 09:43 | Discharge Summary ---
<Tone Gallegos - Last Filed: 10/18/16 09:26> Hospital Course - Hospital Course Hospital Course: Ms. Owens is a 66-year-old female with a history of hypertension, A. fib, heart failure, ventricular arrhythmias, TIA, and AICD placement who presented to the ED on 10/15 for further evaluation of syncope. Patient was in the parking lot [facility] to have labs drawn when she passed out. AICD did not go off. She was brought to the ED for evaluation. CT is negative for evidence of CVA but did reveal mastoiditis. XRs and cervical spine CT were negative. Labs revealed a wbc of 14, hgb 10.3, hematocrit 30.5, bun/creatinine 26/1.6. Pt. was admitted to the hospitalist service for further evaluation and treatment of syncope and pneumonia. Pt. was placed on telemetry. Cardiology was consulted to evaluate. AICD was interrogated and no evidence of dysrhythmias were found. Syncopal episode did not appear to have a cardiac etiology but rather medicines and dehydration. During the stay, it was suspected that patient's lung problems were secondary to amiodarone; this medication was discontinued. Pt. is stable today and able to be discharged home. She was treated with cefepime but will be discharged on augmentin. I would like her to see Dr. Herrera from Pulmonary to ensure clearance of her lung problem whether infection or medication related. She has a preserved ef on echo and her blood pressure is good without meds. Patient will be discharged to f/u with Dr. Mcclure, Dr. Herrera and PMD. Patient seen and examined. Hospital course reviewed and edited. Discharge Plan - Discharge Data Disposition: Disch To Home/Self Care - Discharge Medications New Amoxicillin/Clav Tab [Augmentin Tab] 875 mg PO BID #20 tablet Continue Pravastatin Sodium 20 mg PO BEDTIME Omeprazole [Prilosec] 20 mg PO QAM Nitroglycerin Sl Tab [Nitrostat] 0.4 mg SL Q5M PRN PRN Reason: Chest Pain Magnesium Oxide 250 mg PO QAM Loratadine Tab [Claritin Tab] 10 mg PO QAM Folic Acid Tab 1 mg PO QAM Apixaban [Eliquis] 5 mg PO BID Allopurinol 100 mg PO BID Pregabalin [Lyrica] 75 mg PO BID [place]-3 Fatty Acids/Fish Oil [Fish Oil 1,000 mg Softgel] 3 each PO QAM Loperamide HCl [Loperamide] 2 mg PO Q4H PRN PRN Reason: Loose Stool Calcium Carbonate/Vitamin D3 [Calcium 600 + Vit D Tablet] 1 each PO QAM Amitriptyline [Elavil] 25 mg PO BEDTIME Ergocalciferol (Vitamin D2) [Vitamin D2] 2,000 unit PO QAM Discontinued Valsartan [Diovan] 320 mg PO QAM Potassium Chloride [Klor-Con 8] 8 meq PO QAM Amiodarone Tab [Cordarone Tab] 200 mg PO BID #60 tablet Furosemide Tab [Lasix Tab] 20 mg PO QAM - Follow Up or Referral Follow Up: Iron Herrera MD [Physician] - 2 Weeks Red Mcclure MD [Physician] - 1 Month pmdr tahira [Other] - 2 Weeks - Forms/Instructions Exam - Constitutional Vitals: Period Temp Pulse Resp BP Sys/Jauregui Pulse Ox Last 24 Hr 96.9 F-98.7 F 60-77 16-20 118-162/62-74 95-99 Discharge Results Procedures and tests throughout hospitalization: Pending Orders 10/16/16 12:12 Anemia Profile Routine 10/17/16 16:07 Occult Blood, Stool Routine 10/18/16 04:00 XR chest 2V IN AM 10/19/16 04:00 BMP w/ Mg [Basic Metabolic Panel w/Mg] IN AM CBC [Comp Blood Count Auto Diff] IN AM Labs on day of discharge: Labs from last 24 hours 10/18/16 10/18/16 04:44 04:44 WBC 5.9 RBC 2.91 L Hgb 9.1 L Hct 27.6 L MCV 94.8 MCH 31 MCHC 33.0 RDW 15.0 Plt Count 190 MPV 11.2 Neut % (Auto) 48.4 Lymph % (Auto) 35.9 [place] % (Auto) 9.8 Eos % (Auto) 4.0 Baso % (Auto) 0.7 Neut # (Auto) 2.9 Lymph # (Auto) 2.1 [place] # (Auto) 0.6 Eos # (Auto) 0.2 Baso # (Auto) 0.0 Immature Gran % 1.2 Nucleated RBC % 0.0 Immature Gran # 0.07 Nucleated RBCs # 0.00 Immature Plt Fraction 0.0 Sodium 142 Potassium 4.6 Chloride 109 H Carbon Dioxide 26 Anion Gap 11.6 BUN 18 Creatinine 1.10 H GFR Calculation 55 BUN/Creatinine Ratio 16.00 Glucose 110 H Calculated Osmolality 285.1 Calcium 8.4 L Magnesium 2.1 DS: Provider Date of admission: 10/16/16 14:17 Primary care physician: Manny Yancey DO Attending physician on admission: Jemma Rain MD Discharging clinician: Tone Gallegos NP <Jemma Rain - Last Filed: 10/18/16 10:21> Hospital Course - Time spent with patient Time with patient DS: Greater than 30 minutes (40 min) Diagnosis - Discharge Diagnosis (1) Syncope Status: Acute (2) Pneumonia Status: Acute (3) Cardiomyopathy Status: Acute (4) Mastoiditis Status: Acute (5) AICD (automatic cardioverter/defibrillator) present Status: Chronic (6) Sleep apnea Status: Chronic Discharge Plan - Discharge Data Condition at Discharge: Stable Discharge Diet: heart healthy Activity: resume usual activities as tolerated Hygiene: no restrictions Weight Bearing at Discharge: full weight bearing - Forms/Instructions Additional Discharge Instructions: repeat cxr pa and lateral re sob on day seen by Dr Herrera Exam - Constitutional General appearance: normal weight, no acute distress - Respiratory Respiratory exam: Present: clear to auscultation bilaterally. Absent: rhonchi, wheezes - Cardiovascular Cardiovascular exam: Present: regular rate and rhythm. Absent: systolic murmur - GI/Abdominal GI/Abdominal exam: Present: normal bowel sounds, soft. Absent: tenderness - Extremities Exam Extremities exam: Present: normal inspection, normal capillary refill - Neurological Exam Neurological exam: Present: alert, oriented X3
[2016-10-18] MEDS: FOLIC ACID 1 MG TABLET PO SCH (09:55)
[2016-10-18] MEDS: APIXABAN 5 MG TABLET PO SCH (09:57)
[2016-10-18] MEDS: PREGABALIN 75 MG CAPSULE PO SCH (09:57)
[2016-10-18] MEDS: MAGNESIUM OXIDE 400 MG TABLET PO SCH (09:57)
[2016-10-18] MEDS: CHOLECALCIFEROL 1,000 UNIT TABLET PO SCH (09:57)
[2016-10-18] MEDS: ALLOPURINOL 100 MG TABLET PO SCH (09:57)
[2016-10-18] MEDS: PANTOPRAZOLE 40 MG TABLET PO SCH (09:57)
--- NOTE | 2016-10-18 10:19 | Cardiology Progress Note ---
Assessment and Plan (1) Abnormal chest x-ray Status: Acute Assessment and plan: Her x-rays suspicious for amiodarone lung and we will repeat it in the morning. She feels better off of the amiodarone currently. 10/18: Repeat chest x-ray is pending report is not to the chart Current Visit: Yes (2) Syncope Status: Acute Current Visit: Yes (3) AICD (automatic cardioverter/defibrillator) present Status: Chronic Current Visit: Yes (4) History of atrial fibrillation Status: Chronic Current Visit: Yes (5) High risk medication use Status: Chronic Current Visit: No Cardiology - PN: Subj Interval history: Patient feels much better. She is doing well without problems or complaints and our plan is going to be to have her discharged today. We are holding her antihypertensive medications and she is doing well with good blood pressure. I am also holding her amiodarone. Chest x-ray today is pending. Exam (Progress Note) - Constitutional Vitals: Period Temp Pulse Resp BP Sys/Jauregui Pulse Ox Last 24 Hr 96.9 F-98.7 F 60-77 16-20 118-162/62-74 95-99 Exam: General:no acute distress. alert and oriented, mood and affect are normal HEENT: no new lesions, sclerae are clear, mouth and pharynx benign Neck: supple, trachea midline, no JVD noted Lungs: no rales ronchi or wheeze is noted. pt comfortable without accesory muscle use to assist with breathing CV: RRR no murmur rub or gallop is noted. Abd: soft and nontender, BSNA, no masses. Ext: no cyanosis, clubbing or edema Neuro: grossly intact without focal neurologic deficit. Result/EKG - Labs CBC & BMP: 10/18/16 04:44 10/18/16 04:44 Labs: Laboratory Results - last 24 hr 10/18/16 10/18/16 04:44 04:44 WBC 5.9 RBC 2.91 L Hgb 9.1 L Hct 27.6 L MCV 94.8 MCH 31 MCHC 33.0 RDW 15.0 Plt Count 190 MPV 11.2 Neut % (Auto) 48.4 Lymph % (Auto) 35.9 [place] % (Auto) 9.8 Eos % (Auto) 4.0 Baso % (Auto) 0.7 Neut # (Auto) 2.9 Lymph # (Auto) 2.1 [place] # (Auto) 0.6 Eos # (Auto) 0.2 Baso # (Auto) 0.0 Immature Gran % 1.2 Nucleated RBC % 0.0 Immature Gran # 0.07 Nucleated RBCs # 0.00 Immature Plt Fraction 0.0 Sodium 142 Potassium 4.6 Chloride 109 H Carbon Dioxide 26 Anion Gap 11.6 BUN 18 Creatinine 1.10 H GFR Calculation 55 BUN/Creatinine Ratio 16.00 Glucose 110 H Calculated Osmolality 285.1 Calcium 8.4 L Magnesium 2.1
--- NOTE | 2016-10-18 12:16 | XRay Report ---
History: Syncope. Atrial fibrillation. Abnormal chest x-ray Date: 10/18/2016 Study: Chest x-ray PA and lateral Comparison exam: October 15, 2016 There is stable borderline cardiomegaly. The mediastinal contour is unchanged. The pulmonary vasculature is not engorged. A left subclavian multiple lead pacemaker/defibrillator device is stable in appearance. There is no pleural effusion. The lungs are well-expanded and generally clear without acute infiltrate. There are some occasional scattered tiny calcified granulomata. Osseous structures are similar. There is osteopenia and mild thoracic spondylosis. Impression: No acute cardiopulmonary process compared to the previous study. No evidence of pneumonia. Stable appearance of the pacemaker device PROCEDURE INTERPRETED AT [facility] DEPARTMENT OF RADIOLOGY Final Report Signed by: Dr. Codi Lopez
[2016-10-19 06:53] LABS: Hemoglobin A1 (Alkaline) 97.3 % (96.5-98.5); Hemoglobin A2 (Alkaline) 2.7 % (1.5-3.5)
== END 2016-10-18 11:59 | disposition home or self-care (01) | DRG 640 ==
LOC: EDUNIT# → N.EDINP 11:26 → N.ED 11:26 → N.TELEN 15:36
PROVIDERS: ADMIT Internal Medicine; ATTEND Internal Medicine

== ENCOUNTER 2017-03-19 17:06 | Inpatient (IN) ==
[2017-03-19] MEDS ORDERED: SODIUM CHLORIDE 0.9% 1,000 ML IV PRN (22:55)
[2017-03-19 23:03] LABS: Basophils % 0.1 % (0.0-0.8); Eosinophils % 0.1 % (0.00-10.9); Hematocrit 26.9 VOL% (35.7-47.0); Immature Granulocytes % 0.8 %; Immature Granulocytes Absolute 0.11 #; Lymphocytes # 1.4 10*3/uL (1.4-4.0); Lymphocytes % 10.7 % (21.3-54.2); Mean Corpuscular HGB Conc 29.7 GM/DL (32-36); Mean Corpuscular Hemoglobin 23 PG (27-34); Mean Corpuscular Volume 77.1 FL (87-102); Mean Platelet Volume 10.9 FL (9.6-12.0); Monocytes # 0.9 10*3/uL (0.11-0.8); Monocytes % 6.8 % (1.7-12.7); Neutrophils % 81.5 % (38.7-73.9); Platelet Count 381 T/CUMM (130-400); Red Blood Count 3.49 MC/CUMM (3.8-5.5); Red Cell Distribution Width 19.8 % (9.3-17.3); White Blood Count 13.5 T/CUMM (4-12)
[2017-03-19 23:15] LABS: Alanine Aminotransferase 57 U/L (13-56); Albumin 3.7 G/DL (3.4-5.0); Alkaline Phosphatase 82 U/L (45-117); Aspartate Amino Transferase 24 U/L (0-37); Bilirubin,Total < 0.39 MG/DL (0.2-1.0); Blood Urea Nitrogen 23 MG/DL (7-18); Calcium 9.1 MG/DL (8.5-10.1); Glucose 161 MG/DL (74-106); Sodium 136 MMOL/L (136-145); Total Protein 8.1 G/DL (6.4-8.3)
[2017-03-19] MEDS ORDERED: ONDANSETRON 4 MG/2 ML VIAL IV PRN (23:32)
[2017-03-19] MEDS ORDERED: NITROGLYCERIN SL 0.4 MG TABLET SL PRN (23:38)
[2017-03-19] MEDS ORDERED: PANTOPRAZOLE 40 MG VIAL IV SCH (23:45)
[2017-03-20 01:20] LABS: Apearance,Urine CLEAR (Clear); Bilirubin,Urine Negative (Negative); Blood, Urine Negative (Negative); Glucose,Urine (UA) Negative (Negative); Ketones,Urine Negative (Negative); Nitrite,Urine Negative (Negative); Protein,Urine Negative; Squamous Epithelial Cell,Urine Occasional /HPF (0-10); Urine Color Straw (Yellow); Urine Specific Gravity 1.006 (1.001-1.035); Urine Urobilinogen < 2.0 EU/DL (0.2-1.0); WBC,Urine <1 /HPF (0-6)
[2017-03-20 07:54] LABS: Basophils % 0.1 % (0.0-0.8); Eosinophils % 0.3 % (0.00-10.9); Hematocrit 28.4 VOL% (35.7-47.0); Hemoglobin 8.7 GM/DL (12.0-16.0); Immature Granulocytes % 0.6 %; Immature Granulocytes Absolute 0.07 #; Lymphocytes # 1.4 10*3/uL (1.4-4.0); Lymphocytes % 12.1 % (21.3-54.2); Mean Corpuscular HGB Conc 30.6 GM/DL (32-36); Mean Corpuscular Hemoglobin 24 PG (27-34); Monocytes # 0.9 10*3/uL (0.11-0.8); Monocytes % 7.7 % (1.7-12.7); Neutrophils # 8.9 10*3/uL (1.4-7.4); Neutrophils % 79.2 % (38.7-73.9); Platelet Count 354 T/CUMM (130-400); Red Blood Count 3.69 MC/CUMM (3.8-5.5); Red Cell Distribution Width 19.7 % (9.3-17.3); White Blood Count 11.2 T/CUMM (4-12)
[2017-03-20 08:20] LABS: Calcium 8.9 MG/DL (8.5-10.1); Potassium 4.3 MMOL/L (3.5-5.1)
[2017-03-20] MEDS ORDERED: IRON DEXTRAN 25 MG in SYRINGE 1 EACH IV ONE (09:30)
[2017-03-20] MEDS: COLESTIPOL 1 GM TABLET PO SCH ×2 (10:30→20:44)
[2017-03-20] MEDS ORDERED: SODIUM CHLORIDE 0.9% IV ONE (11:00)
[2017-03-20] MEDS ORDERED: IRON DEXTRAN IV ONE (11:00)
[2017-03-20] MEDS: PANTOPRAZOLE 40 MG TABLET PO SCH (18:19)
[2017-03-21] MEDS: PANTOPRAZOLE 40 MG TABLET PO SCH ×2 (06:36→18:00)
[2017-03-21] MEDS: COLESTIPOL 1 GM TABLET PO SCH ×2 (09:07→21:51)
[2017-03-21] MEDS ORDERED: COLESTIPOL 1 GM TABLET PO PRN (11:59)
[2017-03-21] MEDS ORDERED: oxyCODONE/ACETAMINOPHEN 5-325 MG TABLET PO PRN (11:59)
[2017-03-21 12:17] LABS: Hemoglobin 8.9 GM/DL (12.0-16.0)
[2017-03-21] MEDS: ACETAMINOPHEN 325 MG TABLET PO PRN (21:50)
[2017-03-21] MEDS: PREGABALIN 75 MG CAPSULE PO SCH (21:51)
[2017-03-21] MEDS: ALLOPURINOL 100 MG TABLET PO SCH (21:51)
[2017-03-22 05:37] LABS: Basophils # 0.1 10*3/uL (0.0-0.2); Basophils % 0.7 % (0.0-0.8); Eosinophils # 0.2 10*3/uL (0.0-0.87); Hematocrit 30.4 VOL% (35.7-47.0); Hemoglobin 9.2 GM/DL (12.0-16.0); Immature Granulocytes % 0.7 %; Immature Granulocytes Absolute 0.05 #; Lymphocytes % 27.5 % (21.3-54.2); Mean Corpuscular HGB Conc 30.3 GM/DL (32-36); Mean Corpuscular Hemoglobin 24 PG (27-34); Mean Corpuscular Volume 78.8 FL (87-102); Mean Platelet Volume 10.9 FL (9.6-12.0); Monocytes # 0.9 10*3/uL (0.11-0.8); Neutrophils % 56.1 % (38.7-73.9); Platelet Count 314 T/CUMM (130-400); Red Blood Count 3.86 MC/CUMM (3.8-5.5); Red Cell Distribution Width 19.4 % (9.3-17.3); White Blood Count 7.1 T/CUMM (4-12)
[2017-03-22 06:06] LABS: Osmolality,Calculated 283.3 MOS/KG (273-304); Potassium 4.2 MMOL/L (3.5-5.1)
[2017-03-22] MEDS: PANTOPRAZOLE 40 MG TABLET PO SCH ×2 (07:25→10:55)
[2017-03-22] MEDS ORDERED: FLUTICASONE 50 MCG NASAL SPRAY 16 GM BOTTLE BOTH NARES SCH (09:00)
[2017-03-22] MEDS ORDERED: FUROSEMIDE 40 MG TABLET PO SCH (09:00)
[2017-03-22] MEDS ORDERED: OMEGA PO SCH (09:00)
[2017-03-22] MEDS ORDERED: LORATADINE 10 MG TABLET PO SCH (09:00)
[2017-03-22] MEDS ORDERED: FATTY ACIDS PO SCH (09:00)
[2017-03-22] MEDS ORDERED: FISH OIL PO SCH (09:00)
[2017-03-22] MEDS ORDERED: CALCIUM (CITRATE) 200 MG TABLET PO SCH (09:00)
[2017-03-22] MEDS ORDERED: DULoxetine 30 MG CAPSULE PO SCH (09:00)
[2017-03-22] MEDS ORDERED: MAGNESIUM OXIDE 400 MG TABLET PO SCH (09:00)
[2017-03-22] MEDS ORDERED: PROPOFOL 200 MG/20 ML VIAL IV ONE (09:50)
[2017-03-22] MEDS ORDERED: LIDOCAINE 2% TOP JELLY 5 ML TUBE TOP ONE (09:50)
[2017-03-22] MEDS: COLESTIPOL 1 GM TABLET PO SCH (10:54)
[2017-03-22] MEDS: ALLOPURINOL 100 MG TABLET PO SCH (10:55)
[2017-03-22] MEDS: PREGABALIN 75 MG CAPSULE PO SCH (10:55)
[2017-03-22] MEDS: ACETAMINOPHEN 325 MG TABLET PO PRN (10:58)
[2017-03-22 13:12] VITALS: BP 141/89
[2017-03-23] MEDS ORDERED: NON-FORMULARY MEDICATION (Omeprazole [Prilosec] 20 MG) PO SCH (09:00)
[2017-03-28] MEDS ORDERED: ERGOCALCIFEROL 50,000 UNIT CAPSULE PO SCH (09:00)
== END 2017-03-22 15:09 | disposition home or self-care (01) | DRG 378 ==
LOC: N.ED 17:06 → N.EDINP 23:32 → SUATTDRO 23:32 → N.5E 03-20 00:21
PROVIDERS: ADMIT Internal Medicine; ATTEND Hospitalist

== ENCOUNTER 2017-05-12 15:01 | Inpatient (IN) ==
[2017-05-12] MEDS ORDERED: SODIUM CHLORIDE 0.9% 1,000 ML IV STA (15:20)
[2017-05-12] MEDS ORDERED: PROMETHAZINE 25 MG/1 ML VIAL IM STA (15:21)
[2017-05-12] MEDS ORDERED: LOPERAMIDE 2 MG CAPSULE PO STA (15:47)
[2017-05-12 15:50] LABS: Basophils % 0.4 % (0.0-0.8); Eosinophils # 0.1 10*3/uL (0.0-0.87); Eosinophils % 1.1 % (0.00-10.9); Hemoglobin 12.1 GM/DL (12.0-16.0); Immature Granulocytes % 0.4 %; Immature Granulocytes Absolute 0.02 #; Lymphocytes # 0.9 10*3/uL (1.4-4.0); Lymphocytes % 16.6 % (21.3-54.2); Mean Corpuscular HGB Conc 31.8 GM/DL (32-36); Mean Corpuscular Hemoglobin 27 PG (27-34); Mean Corpuscular Volume 85.8 FL (87-102); Mean Platelet Volume 11.2 FL (9.6-12.0); Monocytes # 0.5 10*3/uL (0.11-0.8); Monocytes % 8.4 % (1.7-12.7); Neutrophils # 3.9 10*3/uL (1.4-7.4); Neutrophils % 73.1 % (38.7-73.9); Platelet Count 197 T/CUMM (130-400); Red Blood Count 4.43 MC/CUMM (3.8-5.5); Red Cell Distribution Width 23.9 % (9.3-17.3); White Blood Count 5.4 T/CUMM (4-12)
[2017-05-12] MEDS ORDERED: PROMETHAZINE 25 MG/1 ML VIAL ONE (16:03)
[2017-05-12 16:07] LABS: Albumin 3.5 G/DL (3.4-5.0); Bilirubin,Total 0.4 MG/DL (0.2-1.0); Calcium 8.4 MG/DL (8.5-10.1); Osmolality,Calculated 280.7 MOS/KG (273-304); Potassium 4.2 MMOL/L (3.5-5.1); Total Protein 6.7 G/DL (6.4-8.3)
[2017-05-12] MEDS ORDERED: MAGNESIUM SULF RIDER 4 GM in PREMIX 1 EACH IV PRN (22:02)
[2017-05-12] MEDS ORDERED: ONDANSETRON 4 MG/2 ML VIAL IV PRN (22:02)
[2017-05-12] MEDS ORDERED: ACETAMINOPHEN 325 MG TABLET PO PRN (22:02)
[2017-05-12] MEDS ORDERED: LABETALOL 20 MG/4 ML SYRINGE IV PRN (22:02)
[2017-05-12] MEDS ORDERED: MAGNESIUM SULF RIDER 2 GM in PREMIX 1 EACH IV PRN (22:02)
[2017-05-12] MEDS ORDERED: POTASSIUM CHLORIDE RIDER 10 MEQ in PREMIX 1 EACH IV PRN (22:02)
[2017-05-12] MEDS: SODIUM CHLORIDE 0.45% 1,000 ML IV SCH (23:24)
[2017-05-13 05:25] LABS: Apearance,Urine Slightly Hazy (Clear); Bacteria,Urine Occasional /HPF (Few); Bilirubin,Urine Negative (Negative); Blood, Urine Negative (Negative); Glucose,Urine (UA) Negative (Negative); Ketones,Urine 20 mg/dL (Negative); Mucus,Urine Occasional /LPF (Occasional); Nitrite,Urine Negative (Negative); Protein,Urine 30 MG/DL; RBC,Urine 1 /HPF (0-4); Squamous Epithelial Cell,Urine Occasional /HPF (0-10); Urine Color Yellow (Yellow); Urine Specific Gravity 1.019 (1.001-1.035); Urine Urobilinogen < 2.0 EU/DL (0.2-1.0); WBC,Urine 10 /HPF (0-6)
[2017-05-13 05:33] LABS: Basophils % 0.4 % (0.0-0.8); Eosinophils # 0.2 10*3/uL (0.0-0.87); Eosinophils % 4.3 % (0.00-10.9); Hemoglobin 11.9 GM/DL (12.0-16.0); Immature Granulocytes % 0.4 %; Immature Granulocytes Absolute 0.02 #; Lymphocytes # 1.3 10*3/uL (1.4-4.0); Lymphocytes % 24.8 % (21.3-54.2); Mean Corpuscular HGB Conc 33.1 GM/DL (32-36); Mean Corpuscular Hemoglobin 28 PG (27-34); Mean Corpuscular Volume 84.3 FL (87-102); Monocytes # 0.4 10*3/uL (0.11-0.8); Monocytes % 8.1 % (1.7-12.7); Neutrophils # 3.2 10*3/uL (1.4-7.4); Platelet Count 184 T/CUMM (130-400); Red Blood Count 4.27 MC/CUMM (3.8-5.5); Red Cell Distribution Width 23.9 % (9.3-17.3); White Blood Count 5.1 T/CUMM (4-12)
[2017-05-13 05:51] LABS: Hypochromasia 1+; Platelet Estimate Normal
[2017-05-13 05:52] LABS: Giant Platelets Few
[2017-05-13 06:10] LABS: Albumin 3.2 G/DL (3.4-5.0); Bilirubin,Total 0.4 MG/DL (0.2-1.0); Calcium 8.5 MG/DL (8.5-10.1); Osmolality,Calculated 277.5 MOS/KG (273-304); Potassium 4.2 MMOL/L (3.5-5.1); Total Protein 6.1 G/DL (6.4-8.3)
[2017-05-13] MEDS: SODIUM CHLORIDE 0.45% 1,000 ML IV SCH ×3 (07:15→22:17)
[2017-05-13] MEDS: ENOXAPARIN 30 MG/0.3 ML SYRINGE SUBCUT SCH (09:23)
[2017-05-13] MEDS: PANTOPRAZOLE 40 MG VIAL IV SCH (09:23)
[2017-05-13] MEDS: FLUTICASONE 50 MCG NASAL SPRAY 16 GM BOTTLE BOTH NARES SCH (09:23)
[2017-05-14] MEDS: SODIUM CHLORIDE 0.45% 1,000 ML IV SCH (05:56)
[2017-05-14 07:27] LABS: Basophils % 0.4 % (0.0-0.8); Eosinophils # 0.3 10*3/uL (0.0-0.87); Eosinophils % 5.6 % (0.00-10.9); Hematocrit 36.1 VOL% (35.7-47.0); Hemoglobin 11.7 GM/DL (12.0-16.0); Immature Granulocytes % 0.4 %; Immature Granulocytes Absolute 0.02 #; Lymphocytes # 1.1 10*3/uL (1.4-4.0); Lymphocytes % 24.2 % (21.3-54.2); Mean Corpuscular HGB Conc 32.4 GM/DL (32-36); Mean Corpuscular Hemoglobin 28 PG (27-34); Mean Corpuscular Volume 84.7 FL (87-102); Mean Platelet Volume 10.4 FL (9.6-12.0); Monocytes # 0.4 10*3/uL (0.11-0.8); Monocytes % 8.1 % (1.7-12.7); Neutrophils # 2.7 10*3/uL (1.4-7.4); Neutrophils % 61.3 % (38.7-73.9); Platelet Count 191 T/CUMM (130-400); Red Blood Count 4.26 MC/CUMM (3.8-5.5); Red Cell Distribution Width 23.4 % (9.3-17.3); White Blood Count 4.5 T/CUMM (4-12)
[2017-05-14 07:46] LABS: Hypochromasia 1+; Microcytosis 1+; Ovalocytes Slight
[2017-05-14 07:47] LABS: Platelet Estimate Adequate
[2017-05-14 07:54] LABS: Albumin 3.5 G/DL (3.4-5.0); Bilirubin,Total 0.4 MG/DL (0.2-1.0); Calcium 8.8 MG/DL (8.5-10.1); Osmolality,Calculated 275.5 MOS/KG (273-304); Potassium 3.5 MMOL/L (3.5-5.1); Total Protein 6.8 G/DL (6.4-8.3)
[2017-05-14 07:58] LABS: Calcium 8.6 MG/DL (8.5-10.1); Osmolality,Calculated 275.5 MOS/KG (273-304); Potassium 3.5 MMOL/L (3.5-5.1)
[2017-05-14] MEDS ORDERED: SODIUM CHLORIDE 0.45% 1,000 ML IV SCH (08:30)
[2017-05-14] MEDS: ENOXAPARIN 30 MG/0.3 ML SYRINGE SUBCUT SCH (08:55)
[2017-05-14] MEDS: PANTOPRAZOLE 40 MG VIAL IV SCH (08:55)
[2017-05-14] MEDS: FLUTICASONE 50 MCG NASAL SPRAY 16 GM BOTTLE BOTH NARES SCH (08:56)
[2017-05-14 15:53] VITALS: BP 170/100
[2017-05-14] MEDS ORDERED: CARVEDILOL 6.25 MG TABLET PO ONE (16:54)
== END 2017-05-14 16:57 | disposition home or self-care (01) | DRG 392 ==
LOC: EDUNIT# → EDBD → N.ED 15:01 → N.EDINP 18:20 → N.5E 19:46

== ENCOUNTER 2017-07-30 05:23 | Inpatient (IN) ==
[2017-07-26 09:02] LABS: Basophils # 0.1 10*3/uL (0.0-0.2); Basophils % 0.8 % (0.0-0.8); Eosinophils # 0.2 10*3/uL (0.0-0.87); Eosinophils % 2.9 % (0.00-10.9); Hematocrit 33.3 VOL% (35.7-47.0); Hemoglobin 10.7 GM/DL (12.0-16.0); Immature Granulocytes % 1.4 %; Immature Granulocytes Absolute 0.09 #; Lymphocytes # 1.3 10*3/uL (1.4-4.0); Lymphocytes % 19.3 % (21.3-54.2); Mean Corpuscular HGB Conc 32.1 GM/DL (32-36); Mean Corpuscular Hemoglobin 31 PG (27-34); Mean Corpuscular Volume 95.1 FL (87-102); Mean Platelet Volume 10.7 FL (9.6-12.0); Monocytes # 0.6 10*3/uL (0.11-0.8); Monocytes % 8.9 % (1.7-12.7); Neutrophils # 4.4 10*3/uL (1.4-7.4); Neutrophils % 66.7 % (38.7-73.9); Platelet Count 239 T/CUMM (130-400); Red Cell Distribution Width 14.5 % (9.3-17.3); White Blood Count 6.5 T/CUMM (4-12)
[2017-07-26 09:06] LABS: Apearance,Urine CLEAR (Clear); Bacteria,Urine Occasional /HPF (Few); Bilirubin,Urine Negative (Negative); Blood, Urine Negative (Negative); Glucose,Urine (UA) Negative (Negative); Ketones,Urine Negative (Negative); Nitrite,Urine Negative (Negative); Protein,Urine Negative; RBC,Urine <1 /HPF (0-4); Squamous Epithelial Cell,Urine Occasional /HPF (0-10); Urine Color Straw (Yellow); Urine Specific Gravity 1.008 (1.001-1.035); Urine Urobilinogen < 2.0 EU/DL (0.2-1.0); WBC,Urine 1 /HPF (0-6)
[2017-07-26 09:10] LABS: INR 0.9; PT Patient Result 9.8 SECS; Partial Thromboplastin Time 25.6 SECS (0-40)
[2017-07-26 09:31] LABS: Alanine Aminotransferase 18 U/L (13-56); Albumin 3.5 G/DL (3.4-5.0); Alkaline Phosphatase 81 U/L (45-117); Aspartate Amino Transferase 16 U/L (0-37); Bilirubin,Total < 0.39 MG/DL (0.2-1.0); Blood Urea Nitrogen 13 MG/DL (7-18); Calcium 8.5 MG/DL (8.5-10.1); Glucose 122 MG/DL (74-106); Osmolality,Calculated 277.5 MOS/KG (273-304); Potassium 4.5 MMOL/L (3.5-5.1); Sodium 139 MMOL/L (136-145); Total Protein 6.9 G/DL (6.4-8.3)
[2017-07-30] MEDS ORDERED: CLINDAMYCIN INJ 50 ML IV ONE (05:59)
[2017-07-30] MEDS ORDERED: VANCOMYCIN 1,000 MG VIAL ONE (05:59)
[2017-07-30] MEDS ORDERED: CLINDAMYCIN INJ 900 MG in PREMIX 1 EACH IV ONE (06:00)
[2017-07-30] MEDS ORDERED: VANCOMYCIN INJ 1,000 MG in SODIUM CHLORIDE 0.9% 250 ML IV ONE (06:00)
[2017-07-30] MEDS: LACTATED RINGERS 1,000 ML IV SCH (06:27)
[2017-07-30] MEDS ORDERED: TRANEXAMIC ACID 1,000 MG/10 ML VIAL ONE (06:43)
[2017-07-30 07:06] LABS: PT Patient Result 10.3 SECS; Partial Thromboplastin Time 26.5 SECS (0-40)
[2017-07-30] MEDS ORDERED: LACTULOSE 20 GM/30 ML UDCUP PO PRN (07:12)
[2017-07-30] MEDS ORDERED: MAGNESIUM HYDROXIDE SUSP 30 ML UDCUP PO PRN (07:12)
[2017-07-30] MEDS ORDERED: PROMETHAZINE 25 MG/1 ML VIAL IM PRN (07:12)
[2017-07-30] MEDS ORDERED: BISACODYL 10 MG SUPP RECTAL PRN (07:12)
[2017-07-30] MEDS ORDERED: ONDANSETRON 4 MG/2 ML VIAL IV PRN (07:12)
[2017-07-30] MEDS ORDERED: TEMAZEPAM 7.5 MG CAPSULE PO PRN (07:12)
[2017-07-30] MEDS ORDERED: diphenhydrAMINE CAP 25 MG CAPSULE PO PRN (07:12)
[2017-07-30] MEDS ORDERED: HYDROmorphone 2 MG/1 ML VIAL IV PRN ×2 (07:16)
[2017-07-30] MEDS ORDERED: MEPERIDINE 50 MG TABLET PO PRN (07:16)
[2017-07-30] MEDS ORDERED: POTASSIUM CHLORIDE 8 MEQ CAPSULE PO PRN (07:17)
[2017-07-30] MEDS ORDERED: NITROGLYCERIN SL 0.4 MG TABLET SL PRN (07:17)
[2017-07-30] MEDS ORDERED: ROPIVACAINE 0.5% 30 ML VIAL ONE (08:27)
[2017-07-30] MEDS ORDERED: PROPOFOL 200 MG/20 ML VIAL IV ONE (09:26)
[2017-07-30] MEDS ORDERED: DEXAMETHASONE 10 MG/1 ML VIAL ONE (09:27)
[2017-07-30] MEDS ORDERED: SEVOFLURANE 1 UNIT/15 MINUTE INH ONE (09:27)
[2017-07-30] MEDS ORDERED: SCOPOLAMINE 1.5 MG PATCH TRANSDERM ONE (09:27)
[2017-07-30] MEDS ORDERED: fentaNYL 100 MCG/2 ML VIAL ONE (09:27)
[2017-07-30] MEDS ORDERED: ONDANSETRON 4 MG/2 ML VIAL ONE (09:27)
[2017-07-30] MEDS ORDERED: MIDAZOLAM 2 MG/2 ML VIAL ONE (09:27)
[2017-07-30] MEDS ORDERED: GLYCOPYRROLATE 0.4 MG/2 ML VIAL ONE (09:28)
[2017-07-30] MEDS ORDERED: LACTATED RINGERS 1,000 ML IV ONE (09:28)
[2017-07-30] MEDS ORDERED: ROCURONIUM 100 MG/10 ML VIAL IV ONE (09:28)
[2017-07-30] MEDS ORDERED: PHENYLEPHRINE 10 MG/1 ML VIAL IV ONE (09:28)
[2017-07-30] MEDS ORDERED: SODIUM CHLORIDE 0.9% 200 ML IV ONE (09:28)
[2017-07-30] MEDS ORDERED: ETOMIDATE 40 MG/20 ML VIAL IV ONE (09:28)
[2017-07-30] MEDS ORDERED: NEOSTIGMINE 10 MG/10 ML VIAL ONE (09:28)
[2017-07-30] MEDS ORDERED: CLINDAMYCIN INJ 900 MG in PREMIX 1 EACH IV SCH ×2 (11:13→21:30)
[2017-07-30] MEDS: FUROSEMIDE 40 MG TABLET PO SCH (11:25)
[2017-07-30] MEDS: LORATADINE 10 MG TABLET PO SCH (12:32)
[2017-07-30] MEDS: DOCUSATE SODIUM 100 MG CAPSULE PO SCH ×2 (12:32→21:34)
[2017-07-30] MEDS: APIXABAN 5 MG TABLET PO SCH ×2 (12:33→21:34)
[2017-07-30] MEDS: ALLOPURINOL 100 MG TABLET PO SCH ×2 (12:33→21:34)
[2017-07-30] MEDS: COLESTIPOL 1 GM TABLET PO SCH ×4 (12:33→21:33)
[2017-07-30] MEDS: PANTOPRAZOLE 40 MG TABLET PO SCH (12:33)
[2017-07-30] MEDS: CARVEDILOL 25 MG TABLET PO SCH ×2 (12:33→21:34)
[2017-07-30] MEDS: FLUTICASONE 50 MCG NASAL SPRAY 16 GM BOTTLE BOTH NARES SCH (12:34)
[2017-07-30] MEDS: PREGABALIN 100 MG CAPSULE PO SCH ×2 (12:34→21:34)
[2017-07-30] MEDS: DULoxetine 30 MG CAPSULE PO SCH (21:33)
[2017-07-31 04:52] LABS: Basophils % 0.1 % (0.0-0.8); Hematocrit 27.2 VOL% (35.7-47.0); Hemoglobin 9.1 GM/DL (12.0-16.0); Immature Granulocytes % 0.5 %; Immature Granulocytes Absolute 0.05 #; Lymphocytes # 0.9 10*3/uL (1.4-4.0); Lymphocytes % 7.8 % (21.3-54.2); Mean Corpuscular HGB Conc 33.5 GM/DL (32-36); Mean Corpuscular Hemoglobin 31 PG (27-34); Mean Corpuscular Volume 91.9 FL (87-102); Mean Platelet Volume 11.3 FL (9.6-12.0); Monocytes # 0.9 10*3/uL (0.11-0.8); Neutrophils # 9.1 10*3/uL (1.4-7.4); Neutrophils % 83.6 % (38.7-73.9); Platelet Count 219 T/CUMM (130-400); Red Blood Count 2.96 MC/CUMM (3.8-5.5); Red Cell Distribution Width 14.4 % (9.3-17.3); White Blood Count 10.9 T/CUMM (4-12)
[2017-07-31 05:26] LABS: Calcium 8.1 MG/DL (8.5-10.1); Osmolality,Calculated 276.8 MOS/KG (273-304); Potassium 4.6 MMOL/L (3.5-5.1)
[2017-07-31] MEDS: LACTATED RINGERS 1,000 ML IV SCH (06:15)
[2017-07-31] MEDS ORDERED: ACETAMINOPHEN 325 MG TABLET PO PRN (07:13)
[2017-07-31] MEDS ORDERED: oxyCODONE IR 5 MG TABLET PO PRN ×2 (08:12)
[2017-07-31] MEDS ORDERED: NAPROXEN 500 MG TABLET PO PRN (08:13)
[2017-07-31] MEDS ORDERED: NAPROXEN 250 MG TABLET PO PRN (08:13)
[2017-07-31] MEDS: COLESTIPOL 1 GM TABLET PO SCH ×4 (09:13→21:22)
[2017-07-31] MEDS: LORATADINE 10 MG TABLET PO SCH (09:13)
[2017-07-31] MEDS: DOCUSATE SODIUM 100 MG CAPSULE PO SCH ×2 (09:13→21:22)
[2017-07-31] MEDS: APIXABAN 5 MG TABLET PO SCH ×2 (09:14→21:22)
[2017-07-31] MEDS: PREGABALIN 100 MG CAPSULE PO SCH ×2 (09:14→21:22)
[2017-07-31] MEDS: ALLOPURINOL 100 MG TABLET PO SCH ×2 (09:14→21:22)
[2017-07-31] MEDS: CARVEDILOL 25 MG TABLET PO SCH ×2 (09:14→21:22)
[2017-07-31] MEDS: FUROSEMIDE 40 MG TABLET PO SCH (09:14)
[2017-07-31] MEDS: PANTOPRAZOLE 40 MG TABLET PO SCH (09:14)
[2017-07-31] MEDS: FLUTICASONE 50 MCG NASAL SPRAY 16 GM BOTTLE BOTH NARES SCH (09:16)
[2017-07-31] MEDS: DULoxetine 30 MG CAPSULE PO SCH (21:22)
[2017-08-01 02:28] LABS: Basophils % 0.3 % (0.0-0.8); Eosinophils # 0.1 10*3/uL (0.0-0.87); Eosinophils % 0.7 % (0.00-10.9); Hematocrit 26.9 VOL% (35.7-47.0); Hemoglobin 8.9 GM/DL (12.0-16.0); Immature Granulocytes % 0.7 %; Immature Granulocytes Absolute 0.06 #; Lymphocytes # 1.8 10*3/uL (1.4-4.0); Lymphocytes % 20.4 % (21.3-54.2); Mean Corpuscular HGB Conc 33.1 GM/DL (32-36); Mean Corpuscular Hemoglobin 30 PG (27-34); Mean Corpuscular Volume 91.5 FL (87-102); Mean Platelet Volume 11.2 FL (9.6-12.0); Monocytes % 10.9 % (1.7-12.7); Neutrophils # 5.9 10*3/uL (1.4-7.4); Platelet Count 202 T/CUMM (130-400); Red Blood Count 2.94 MC/CUMM (3.8-5.5); Red Cell Distribution Width 14.5 % (9.3-17.3); White Blood Count 8.8 T/CUMM (4-12)
[2017-08-01 02:49] LABS: Calcium 7.8 MG/DL (8.5-10.1); Osmolality,Calculated 274.1 MOS/KG (273-304); Potassium 3.5 MMOL/L (3.5-5.1)
[2017-08-01] MEDS: LORATADINE 10 MG TABLET PO SCH (09:48)
[2017-08-01] MEDS: COLESTIPOL 1 GM TABLET PO SCH ×2 (09:49→13:00)
[2017-08-01] MEDS: APIXABAN 5 MG TABLET PO SCH (09:49)
[2017-08-01] MEDS: PREGABALIN 100 MG CAPSULE PO SCH (09:49)
[2017-08-01] MEDS: FLUTICASONE 50 MCG NASAL SPRAY 16 GM BOTTLE BOTH NARES SCH (09:49)
[2017-08-01] MEDS: PANTOPRAZOLE 40 MG TABLET PO SCH (09:49)
[2017-08-01] MEDS: DOCUSATE SODIUM 100 MG CAPSULE PO SCH (09:49)
[2017-08-01] MEDS: FUROSEMIDE 40 MG TABLET PO SCH (09:49)
[2017-08-01] MEDS: CARVEDILOL 25 MG TABLET PO SCH (09:49)
[2017-08-01] MEDS: ALLOPURINOL 100 MG TABLET PO SCH (09:50)
[2017-08-01 12:44] VITALS: BP 119/69
== END 2017-08-01 12:50 | disposition home health service (06) | DRG 470 ==
LOC: N.OR 05:23 → N.SDSINP 05:26 → N.3E 09:36
PROVIDERS: ADMIT Orthopaedic Surgery; ATTEND Orthopaedic Surgery